=== PATIENT | male | born 1945 | race Caucasian/White ===

== ENCOUNTER 2025-01-06 07:56 | Observation (INO) ==
--- OUTSIDE RECORDS SUMMARY | 2025-01-06 08:29 | External Medical Summary | Summary of Care ---
Author Name Unknown Organization [facility] Address [address] [facility] [place] [address] Phone [phone] Care Team Providers Care Director Of Intelligence Name Role Phone Jose F Chapman MD Primary Care Provider + Encounter Details Date Type Department Care Team (Late st Contact Info) Description 12/11/2024 Population Health External Data Unspecified Department Allergies Active Allergy Reactions Criticality Noted Date Comments Aspirin Other (Please comment) 11/24/2009 GI bleed Bee Venom 02/08/2021 documented as of this encounter (statuses as of 12/11/2024) Medications CENTRUM SILVER PO TABS daily Active Cholecalciferol 50 MCG (1999) Oral Capsule Take 1,000 Units by mouth daily. Active mupirocin calcium (BACTROBAN) 2 % ointmentIndication s:Skin abnormality Apply topically to affected area 2 times a day. Apply to affected area. 22 g 1 0 Active Beano Oral Tablet Take by mouth. Active buPROPion HCl ER (XL) 300 MG Oral Tablet Extended Release 24 Hour (Wellbutrin XL)Indications:Dep ression, recurrent (HCC) Take 1 tablet by mouth once daily 90 Tablet 1 3 Active oxyBUTYnin Chloride ER 10 MG Oral Tablet Extended Release 24 Hour (Ditropan XL) Take 1 Tablet by mouth in the morning. 90 Tablet 3 4 Active Omeprazole 20 MG Oral Capsule Delayed Release (PriLOSEC)Indicati ons:Gastroesophage al reflux disease without esophagitis Take 1 capsule by mouth once daily 90 Capsule 1 4 Active Atorvastatin Calcium 40 MG Oral Tablet (Lipitor)Indicatio ns:Hyperlipidemia with target LDL less than 130 TAKE 1 TABLET BY MOUTH ONCE DAILY IN THE MORNING 90 Tablet 3 4 Active Levothyroxine Sodium 150 MCG Oral Tablet (Levoxyl)Indicatio ns:Other specified hypothyroidism TAKE 1 TABLET BY MOUTH IN THE MORNING 30 MINUTES BEFORE BREAKFAST OR OTHER MEDS 90 Tablet 1 4 Active documented as of this encounter (statuses as of 12/11/2024) Active Problems Problem Noted Date Diagnosed Date Umbilical hernia without obstruction and without gangrene 02/20/2023 BPH with obstruction/lower urinary tract symptom s 07/26/2022 Recurrent major depressive disorder, in remissio n 07/22/2021 Major depressive disorder, recurrent, unspecifie d 07/21/2020 Ocular migraine 07/17/2018 HTN, goal below 140/90 01/31/2014 History of duodenal ulcer 01/01/2013 Major depression 05/24/2012 Overview (05/28/2014): Started therapy , continues, goes to gym. Onychomycosis 04/26/2012 Routine general medical exam ination at a health care facility 03/26/2012 Overview (09/20/2023): 09/10 cologuard WNL AAA screen WNL 06/01 03/03 prostate biopsy WNL 03/02 prostate nodule-s/p biopsy 1 atypical--follows Dr Alvarez. very focal small prostate cancer suspicious cells left apex on biopsy 2013. No cancer on biopsy 2014. uro yearly SEDA 01/29 colonoscopy WNL. +diverticula 06/30-d/c DM meds. Emy 3mos. 2007 a1c 6.0. Started metformin Need to discuss nail options rx vs vinegar Seeing Keena Gee for counseling Erectile dysfunction 03/26/2012 Hyperlipidemia with target LDL less than 130 06/2012 GERD (gastroesophageal reflux disease) 2 Prediabetes 03/26/2012 Hypothyroidism 03/26/2012 Overview (04/26/2012): 03/30 -decreased dosed 175 documented as of this encounter (statuses as of 12/11/2024) Resolved Problems Problem Noted Date Diagnosed Date Resolved Date Abnormal prostate biopsy 04/03/2014 documented as of this encounter (statuses as of 12/11/2024) Immunizations Name Administration Dates Next Due COVID-19 mRNA, LNP-s, No Pre serve, 2-Dose Series (BioConsortia) 02/25/2022,09/16/2021,02/23/2021,02/02 Covid-19, Mrna, Lnp-s, Pf, B ivalent, 30 Mcg, IM, 12 yrs and above (Pfizer) 11/11/2022 Pneumococcal Conjugate Vacc, 13 Valent (Prevnar) 08/04/2016 Pneumococcal Polysaccharide PPV23 (Pneumovax) 04/26/2012,08/17/2009 RSV Vac., Recomb, Adjuvant, PF,0.5 Ml (Arexvy) 10/26/2023 Seasonal Influenza Vac., MDV , IM, 0.5 mL (Fluzone) 01/11/2015,01/01/2013 Seasonal Influenza, PF, 6 M & above, IM , (FluLaval or Fluzone) 07/21/2020 Seasonal Influenza, Quadriva lent Hd (Fluzone Hd) 07/26/2022,07/22/2021 Seasonal Influenza, Quadriva lent, No Preserve, IM 08/04/2016 TDAP (age 10 and older)(Boostrix) 07/23/2021 TDAP, Age 7 and older, IM (Adacel) 01/24/2011 Varicella Zoster Vaccine (Adult) 09/16/2009 Zoster Vaccine Recombinant (Shingrix) 04/14/2020 ,11/15/2019 documented as of this encounter Social History Tobacco Use Types Packs/Day Years Used Date Smoking Tobacco: Former Smokeless Tobacco: Never Alcohol Use Standard Drinks/Week Comments Yes 0 (1 standard drink = 0.6 oz pur e alcohol) rare no binge AUDIT-C Answer Date Recorded Frequency of Alcohol Consumption Monthly or less 04/19/2020 Average Number of Drinks 1 or 2 020 Frequency of Binge Drinking Not on file 11/2019 PHQ-2 Answer Date Recorded PHQ Adult Total Score 0 07/06/2023 Hunger Vital Sign Answer Date Recorded Within the past 12 months, y ou worried that your food would run out before you got the money to buy more. Never true 07/06/20 23 Within the past 12 months, t he food you bought just didn't last and you didn't have money to get more. Never true 07/06/2023 Childcare Answer Date Recorded Do you feel overwhelmed with taking care of a child, family member or friend? No 07/06/2023 Does your family need help f inding childcare? (Household - for ages 0-17 years) Not on file 07/06/2023 Clothing Answer Date Recorded Have you been unable to get clothing when it was really needed? No 07/06/2023 Is your family able to get c lothes or diapers when needed? (Household - for ages 0-17 years) Not on file 07/06/2023 Personal Safety Answer Date Recorded Do you feel unsafe or have concerns for your saf ety? No 07/06/2023 Do you have concerns for you r family's safety? (Household - for ages 0-17 years) Not on file 07/06/2023 Utilities Answer Date Recorded Do you have trouble paying y our heating, water, or electric bill? (Adult - for ages 18 years and over) Not on file 07/07/2024 Is your family able to pay t he heat, water, or electric bill? (Household - for ages 0-17 years) Not on file 07/07/2024 Does your family have access to good internet? (Household - for ages 0-17 years) Not on file 07/07/2024 Employment Status Answer Date Recorded Are you unemployed or without regular income? No 07/06/2023 Does the household have a re lar source of income? (Household - for ages 0-17 years) Not on file 07/06/2023 Social Connections Answer Date Recorded How often do you feel lonely or isolated from those around you? (Adult - for ages 18 years and over) Not on file 07/07/2024 Financial Resource Strain Answer Date R ecorded Do you have any trouble payi ng for your medications, or do you think you might in the future? No 07/06/2023 Does your family have troubl e paying for medicine? (Household - for ages 0-17 years) Not on file 07/06/2023 Transportation Needs Answer Date Record ed READ ONLY Do you have troubl e getting a ride to medical visits or work? Never True 07/06/2023 Does your family have a hard time getting a ride to doctors visits? (Household - for ages 0-17 years) Not on file 07/06/2023 Has lack of transportation k ept you from medical appointments, meetings, work, or from getting things needed for daily living? Check all that apply. (Adult - for ages 18 years and over) Not on file 07/06/2023 Do you (or your family) have trouble finding or paying for a ride (transportation)? (Household - for ages 0-17 years) Not on file 07/06/2023 Housing Stability Answer Date Recorded Do you currently live in a s helter or have no steady place to sleep at night? No 07/06/2023 READ ONLY Do you think you a re at risk of becoming homeless? No 07/06/2023 Does your family worry about paying for your home or becoming homeless? (Household - for ages 0-17 years) Not on file 0 07/06/2023 Are you homeless or worried that you might be in the future? (Adult - for ages 18 years and over) Not on file Are you (or your family) elizabeth eless or worried that you might be in the future? (Household - for ages 0-17 years) Not on file Food Insecurity Answer Date Recorded Do you need food for this week? No 07/06/2023 Are you able to get enough f ood for your family? (Household - for ages 0-17 years) Not on file 07/06/2023 Does your family need food t his week? (Household - for ages 0-17 years) Not on file 07/06/2023 Do you always have enough fo od for your family? (Household - for ages 0-17 years) Not on file 07/06/2023 Sex and Gender Information Value Date Recorded Sex Assigned at Male 07/06/2023 2:06 PM EDT Legal Sex Male 6:44 AM EST Gender Identity Male 04/19/2020 9:18 AM EDT Sexual Orientation Barlow 04/19/2020 9: 18 AM EDT Occupation Industry Job Start Date Job End Date retired Not on file Not on file Not on file documented as of this encounter Plan of Treatment Upcoming Encounters Date Type Department Care Team (Late st Contact Info) Description 02/12/2025 8:30 AM EDT Office Visit Urology Patrice Bernard [address] [place] [address] Craig Casey MD [address] [place] [id number] 03/10/2025 10:40 AM EDT Office Visit Neurology [facility] [address] [place] [address] Gelacio Bray MD [address] [place] [address] 07/21/2025 3:20 PM EDT Office Visit Family Practice [facility] [address] [place] [address] Jose F Chapman MD [address] [place] [id number] Health Maintenance Due Date Last Done Comments Adult Wellness Visit 09/28/2022 09/28/2021 Depression Monitoring 07/06/2024 07/06/2023 COVID-19 Vaccine ( season) 2024 11/11/2022, 02/25/2022, 09/16/2021, Additional history exists Influenza Vaccine (FLU shot) (#1) 2024 07/26/2022, 07/22/2021, 07/21/2020, Additional history exists GFR 07/09/2025 07/09/2024, 0207/2023, 07/26/2022, Additional history exists HbA1c 07/09/2025 07/09/2024, 10/20, 07/26/2022, Additional history exists TSH 07/09/2025 07/09/2024, 01/18, 11/09/2023, Additional history exists Albumin/Creatinine Ratio 07/26/2025 022, 01/15/2015, 06/07/2012 DTap/Tdap Vaccines (3 - Td or Tdap) 07/23/2031 07/23/2021, 01/24/2011 Colonoscopy Discontinued 01/20/2013, 02/2013, 11/24/2009 Pneumococcal Vaccine: 50+ Years Completed 08/04/2016, 04/26/2012, 08/17/2009 Zoster Vaccines Completed 04/14/2020, 10/20, 09/16/2009 Cologuard Discontinued 09/14/2023, 08/19, 09/06/2023 Colorectal Cancer Screening Discontinued Fecal Occult Blood Test Discontinued HPV (Gardasil) Vaccine Aged Out No lo nger eligible based on patient's age to complete this topic Hepatitis B Vaccine Discontinued MENINGOCOCCAL (MENACTRA/MENVEO) Aged Out No longer eligible based on patient's age to complete this topic Sigmoidoscopy Discontinued documented as of this encounter Medical Devices Implanted Type Area Street Openings Inspector Device Identifier Shelf Expiration Date Model / Serial / Lot Patch Hernia Ventralex Med - [id number] Implanted:Qty: 1 on 02/20/2023 by Mauricio Casey MD at OR [facility] N/A: Abdomen CR BARD : DAVOL 01/16/2024 [id number] / / [id number] documented as of this encounter Advance Directives * Full Code (Latest Code Status on File) Date Activated Date Inactivated Comments 02/20/2023 8:32 AM 02/20/2023 3:17 PM This order ref lects the patients wishes and were consensually agreed upon. Question Answer Comments Discussion of Advance Directives occurred with: Patient Care Teams Director Of Intelligence Relationship Specialty Start Date End Date Jose F Chapman MD [address] [id number] PCP - General Family Medicine 01/11/15 documented as of this encounter
--- OUTSIDE RECORDS SUMMARY | 2025-01-06 08:29 | External Medical Summary | Summary of Care ---
Author Name Unknown Organization [facility] Address [address] [facility] [place] [address] Phone [phone] Care Team Providers Care Night Worker Name Role Phone Jose F Clements MD Primary Care Provider + Reason for Visit * Reason Comments eRx-Medication Refill Encounter Details Date Type Department Care Team (Late st Contact Info) Description 09/29/2024 Refill Family Practice [facility] [address] [place] [address] Jose F Clements MD [address] [place] [phone] Other specified hypothyroidism Allergies Active Allergy Reactions Criticality Noted Date Comments Aspirin Other (Please comment) 11/24/2009 GI bleed Bee Venom 02/08/2021 documented as of this encounter (statuses as of 10/01/2024) Medications CENTRUM SILVER PO TABS daily Active Cholecalciferol 50 MCG (1999 [place]) Oral Capsule Take 1,000 Units by mouth daily. Active mupirocin calcium (BACTROBAN) 2 % ointmentIndicatio ns:Skin abnormality Apply topically to affected area 2 times a day. Apply to affected area. 22 g 1 020 Active Beano Oral Tablet Take by mouth. Active buPROPion HCl ER (XL) 300 MG Oral Tablet Extended Release 24 Hour (Wellbutrin XL)Indications:De pression, recurrent (HCC) Take 1 tablet by mouth once daily 90 Tablet 1 12/21/2 023 Active oxyBUTYnin Chloride ER 10 MG Oral Tablet Extended Release 24 Hour (Ditropan XL) Take 1 Tablet by mouth in the morning. 90 Tablet 3 024 Active Omeprazole 20 MG Oral Capsule Delayed Release (PriLOSEC)Indicat ions:Gastroesopha geal reflux disease without esophagitis Take 1 capsule by mouth once daily 90 Capsule 1 024 Active Atorvastatin Calcium 40 MG Oral Tablet (Lipitor)Indicati ons:Hyperlipidemi a with target LDL less than 130 TAKE 1 TABLET BY MOUTH ONCE DAILY IN THE MORNING 90 Tablet 3 024 Active Levothyroxine Sodium 150 MCG Oral Tablet (Levoxyl)Indicati ons:Other specified hypothyroidism TAKE 1 TABLET BY MOUTH IN THE MORNING 30 MINUTES BEFORE BREAKFAST OR OTHER MEDS 90 Tablet 1 024 Active Levothyroxine Sodium 150 MCG Oral Tablet (Levoxyl)Indicati ons:Other specified hypothyroidism TAKE 1 TABLET BY MOUTH ONCE DAILY IN THE MORNING 30 MINUTES BEFORE BREAKFAST OR OTHER MEDICATIONS 90 Tablet 1 024 2023 Discontinued documented as of this encounter (statuses as of 10/01/2024) Active Problems Problem Noted Date Diagnosed Date [...] as of this encounter (statuses as of 10/01/2024) Resolved Problems Problem Noted Date Diagnosed Date Resolved Date Abnormal prostate biopsy 04/03/2014 documented as of this encounter (statuses as of 10/01/2024) Immunizations Name Administration Dates Next Due COVID-19 mRNA, LNP-s, No Pre serve, 2-Dose Series (Ipselex) 02/25/2022,09/16/2021,02/23/2021,02/02 Covid-19, Mrna, Lnp-s, Pf, B ivalent, 30 Mcg, IM, 12 yrs and above (Ipselex) 11/11/2022 Pneumococcal Conjugate Vacc, 13 Valent (Prevnar) [...] 07/06/2023 Does the household have a re gular source of income? (Household - for ages [...] on file documented as of this encounter Miscellaneous Notes * [facility]01/[facility] 11:07 AM ESTSigned Prescriptions: Disp Refills Levothyroxine Sodium 150 MCG Oral Tablet (*90 Tab*1 Sig: TAKE 1 TABLET BY MOUTH IN THE MORNING 30 MINUTES BEFORE BREAKFAST OR OTHER MEDSAuthorizing Provider: JOSE F CLEMENTS User: HUNTER NGUYEN Electronically signed [facility] 10/01/2024 11:07 AM EST documented in this encounter Plan of Treatment Upcoming Encounters Date Type Department Care Team (Late st Contact Info) Description 02/12/2025 8:30 AM EDT Office Visit Urology Patrice Bernard [address] [place] [address] Craig Casey MD [address] [place] [phone] 03/10/2025 10:40 AM EDT Office Visit Neurology [facility] [place] [address] [place] [address] Gelacio Bray MD [address] [place] [address] 07/21/2025 3:20 PM EDT Office Visit Family Practice [facility] [address] [place] [address] Jose F Clements MD [address] [place] [address] Health Maintenance Due Date Last Done Comments Adult Wellness Visit 09/28/2022 09/28/2021 Depression Monitoring 07/06/2024 07/06/2023 COVID-19 Vaccine ( season) 2024 11/11/2022, 02/25/2022, 09/16/2021, Additional history exists Influenza Vaccine (FLU shot) (#1) 2024 07/26/2022, 07/22/2021, 07/21/2020, Additional history exists GFR 07/09/2025 07/09/2024, 07/2023, 07/26/2022, Additional history exists HbA1c 07/09/2025 07/09/2024, 10/20, 07/26/2022, Additional history exists TSH 07/09/2025 07/09/2024, 01/18, 11/09/2023, Additional history exists Albumin/Creatinine Ratio 07/26/2025 022, 01/15/2015, 06/07/2012 DTap/Tdap Vaccines (3 - Td or Tdap) 07/23/2031 07/23/2021, 01/24/2011 Colonoscopy Discontinued 01/20/2013, 02/2013, 11/24/2009 Pneumococcal Vaccine: 65+ Years Completed 08/04/2016, 04/26/2012, 08/17/2009 Zoster Vaccines [...] this encounter Medical Devices Implanted Type Area Professional Services Manager Device Identifier Shelf Expiration Date Model / Serial / Lot Patch Hernia Ventralex Med - [id number] Implanted:Qty: 1 on 02/20/2023 by Mauricio Casey MD at OR [facility] N/A: Abdomen CR BARD : DAVOL 01/16/2024 [id number] / / [id number] documented as of this encounter Visit Diagnoses Diagnosis Other specified hypothyroidism documented in this encounter Advance Directives * Full Code (Latest Code Status on File) Date Activated Date Inactivated Comments 02/20/2023 8:32 AM 02/20/2023 3:17 PM This order ref lects the patients wishes and were consensually agreed upon. Question Answer Comments Discussion of Advance Directives occurred with: Patient Care Teams Night Worker Relationship Specialty Start Date End Date Jose F Clements MD [address] [facility] [place] [address] PCP - General Family Medicine 01/11/15 documented as of this encounter
--- OUTSIDE RECORDS SUMMARY | 2025-01-06 08:29 | External Medical Summary | Summary of Care ---
Author Name Unknown Organization [facility] Address [address] [place] [address] Phone [phone] Care Team Providers Care Investigator Name Role Phone Jose F Chapman MD Primary Care Provider + Reason for Visit * Reason Comments Physical-Exam Yearly physical Encounter Details Date Type Department Care Team (Late st Contact Info) Description 07/11/2024 2:00 PM EDT Office Visit Family Practice [facility] [address] [place] [phone] Jose F Chapman MD [address] [place] [address] HTN, goal below 140/90*; Hyperlipidemia with target LDL less than 130; Other specified hypothyroidism; Prediabetes; BPH with obstruction/lower urinary tract symptoms; Encounter for long-term (current) use of medications Allergies Active Allergy Reactions Criticality Noted Date Comments Aspirin Other (Please comment) 11/24/2009 GI bleed Bee Venom 02/08/2021 documented as of this encounter (statuses as of 07/11/2024) Medications Medication Sig Dispensed Refills Start Date End Date Status CENTRUM SILVER PO TABS daily Active Cholecalciferol 50 MCG (1999) Oral Capsule Take 1,000 Units by mouth daily. Active mupirocin calcium (BACTROBAN) 2 % ointmentIndications: Skin abnormality Apply topically to affected area 2 times a day. Apply to affected area. 22 g 1 04/30/2020 Active Beano Oral Tablet Take by mouth. Act sarah buPROPion HCl ER (XL) 300 MG Oral Tablet Extended Release 24 Hour (Wellbutrin XL)Indications:Depre ssion, recurrent (HCC) Take 1 tablet by mouth once daily 90 Tablet 1 11/08/2023 Active oxyBUTYnin Chloride ER 10 MG Oral Tablet Extended Release 24 Hour (Ditropan XL) Take 1 Tablet by mouth in the morning. 90 Tablet 3 02/13/2024 Active Levothyroxine Sodium 150 MCG Oral Tablet (Levoxyl)Indications :Other specified hypothyroidism TAKE 1 TABLET BY MOUTH ONCE DAILY IN THE MORNING 30 MINUTES BEFORE BREAKFAST OR OTHER MEDICATIONS 90 Tablet 1 04/08/2024 Active Atorvastatin Calcium 40 MG Oral Tablet (Lipitor)Indications :Hyperlipidemia with target LDL less than 130 TAKE 1 TABLET BY MOUTH IN THE MORNING 90 Tablet 1 04/29/2024 Active Omeprazole 20 MG Oral Capsule Delayed Release (PriLOSEC)Indication s:Gastroesophageal reflux disease without esophagitis Take 1 capsule by mouth once daily 90 Capsule 1 05/20/2024 Active documented as of this encounter (statuses as of 07/11/2024) Active Problems Problem Noted Date Diagnosed Date Umbilical hernia without obstruction and without gangrene 02/20/2023 BPH with obstruction/lower urinary tract symptom s 07/26/2022 Recurrent major depressive disorder, in remissio n 07/22/2021 Major depressive disorder, recurrent, unspecifie d 07/21/2020 Ocular migraine 07/17/2018 HTN, goal below 140/90 01/31/2014 History of duodenal ulcer 01/01/2013 Major depression 05/24/2012 Overview: Started therapy , continues, goes to gym. Onychomycosis 04/26/2012 Routine general medical exam ination at a health care facility 03/26/2012 Overview: 09/10 cologuard WNL AAA screen WNL 06/01 [...] reflux disease) 2 Prediabetes 03/26/2012 Hypothyroidism 03/26/2012 Overview: 03/30 -decreased dosed 175 documented as of this encounter (statuses as of 07/11/2024) Resolved Problems Problem Noted Date Diagnosed Date Resolved Date Abnormal prostate biopsy 04/03/2014 documented as of this encounter (statuses as of 07/11/2024) Immunizations Name Administration Dates Next Due COVID-19 mRNA, LNP-s, No Pre serve, 2-Dose Series (ArrayComm) 02/25/2022,09/16/2021,02/23/2021,02/02 Covid-19, Mrna, Lnp-s, Pf, B ivalent, 30 Mcg, IM, 12 yrs and above (ArrayComm) 11/11/2022 Pneumococcal Conjugate Vacc, 13 Valent (Prevnar) 08/04/2016 Pneumococcal Polysaccharide PPV23 (Pneumovax) 04/26/2012,08/17/2009 RSV Vac., Recomb, Adjuvant, PF,0.5 Ml (Arexvy) 10/26/2023 Seasonal Influenza, PF, 6 M & above, IM , (FluLaval or Fluzone) 07/21/2020 Seasonal Influenza, Quadriva lent Hd (Fluzone Hd) 07/26/2022,07/22/2021 Seasonal Influenza, Quadriva lent, No Preserve, IM 08/04/2016 Seasonal Influenza, Split, I IV3, With Preserve, Inj 01/11/2015,01/01/2013 TDAP (age 10 and older)(Boostrix) 07/23/2021 TDAP, Age 7 and older, IM (Adacel) 01/24/2011 Varicella Zoster Vaccine (Adult) 09/16/2009 Zoster Vaccine Recombinant (Shingrix) 04/14/2020 ,11/15/2019 documented as of this encounter Social History Tobacco Use Types Packs/Day Years Used Date Smoking Tobacco: Former Smokeless Tobacco: Never Tobacco Cessation:Counseling Given: Not Answered Alcohol Use Standard Drinks/Week Comments Yes 0 [...] Assigned at Male 07/06/2023 2:06 PM EDT Gender Identity Male 04/19/2020 9:18 AM EDT Sexual Orientation Barlow 04/19/2020 9: 18 AM EDT Job Start Date Occupation Industry Not on file Not on file Not on file documented as of this encounter Last Filed Vital Signs Vital Sign Reading Time Taken Comments Blood Pressure 124/78 07/11/2024 2:25 PM EDT Pulse 68 07/11/2024 2:25 PM EDT Temperature 36.4 C (97.5 F) 07/11/2024 2:25 PM ED T Respiratory Rate 16 07/11/2024 2:25 PM EDT Oxygen Saturation 98% 07/11/2024 2:25 PM EDT Inhaled Oxygen Concentration - - Weight 103 kg (227 lb) 07/11/2024 2:25 PM EDT Height 179.1 cm (5' 10.5") 07/11/2024 2:25 PM ED T Body Mass Index 32.11 07/11/2024 2:25 PM EDT documented in this encounter Progress Notes * Jose F Chapman MD - 07/11/2024 2:35 PM EDT SUBJECTIVE: Corwin Viera is a 79 year old male here for Physical-Exam (Yearly physical ) . Here for annual. No fever, chills, chest pain, shortness of breath, headache, nausea, vomit, diarrhea, constipation or vision changes Had recent trip to [place] , saw shows. Little exercise noted hadn't been taking synthroid regularly, but now he is helping with that. ROS: Negative except above. Past Medical History: Diagnosis Date Abnormal prostate biopsy 04/03/2014 BPH with obstruction/lower urinary tract symptoms 07/26/2022 Elevated glucose 03/26/2012 Erectile dysfunction 03/26/2012 Essential hypertension, benign 03/26/2012 GERD (gastroesophageal reflux disease) 03/26/2012 History of duodenal ulcer 01/01/2013 Major depression 05/24/2012 Ocular migraine 07/17/2018 Onychomycosis 04/26/2012 Other and unspecified hyperlipidemia 03/26/2012 Prostate nodule 03/02 Past Surgical History: Procedure Laterality Date BIOPSY OF PROSTATE 03/02/2014 BIOPSY OF PROSTATE 03/08/2015 WNL COLONOSCOPY, DIAGNOSTIC (RECTUM) 01/20/2013 COLONOSCOPY FLEXIBLE PROXIMAL DIAGNOSTIC performed by Chuck Hunt MD at ENDOSCOPY [facility] COLORECTAL CANCER SCREEN; NOT AT RISK 11/24/2009 done diverticulosis, repeat in 3 years RPR AA HERNIA 1ST < 3 CM REDUCIBLE N/A 02/20/2023 EPIGASTRIC/UMBILICAL HERNIA REPAIR INITIAL < 3 CM REDUCIBLE performed by Mauricio Casey MD at OR [facility] Social History Socioeconomic History Marital status: Spouse name: Not on file Number of children: Not on file Years of education: Not on file Highest education level: Not on file Occupational History Occupation: retired Employer: [employer] 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 mutual masturbation only. 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 2021 [employer]. Social Determinants of Health Financial Resource Strain: Low Risk (07/06/2023) Financial Resource Strain Do you have any trouble paying for your medications, or do you think you might in the future? (Adult - for ages 18 years and over): No Does your family have trouble paying for medicine? (Household - for ages 0-17 years): Not on file Food Insecurity: No Food Insecurity (07/06/2023) Food Insecurity Do you need food for this week? (Adult - for ages 18 years and over): No Are you able to get enough food for your family? (Household - for ages 0-17 years): Not on file Does your family need food this week? (Household - for ages 0-17 years): Not on file Do you always have enough food for your family? (Household - for ages 0-17 years): Not on file Transportation Needs: No Transportation Needs (07/06/2023) Transportation Needs Do you have trouble getting a ride to medical visits or work? (Adult - for ages 18 years and over):Never True Does your family have a hard time getting a ride to doctors visits? (Household - for ages 0-17 years): Not on file Has lack of transportation kept you from medical appointments, meetings, work, or from getting things needed for daily living? Check all that apply. (Adult - for ages 18 years and over): Not on file Do you (or your family) have trouble finding or paying for a ride (transportation)? (Household - for ages 0-17 years): Not on file Social Connections: Unknown (07/07/2024) Social Connections How often do you feel lonely or isolated from those around you? (Adult - for ages 18 years and over): Not on file Housing Stability: Low Risk (07/06/2023) Housing Stability Do you currently live in a custodial or have no steady place to sleep at night? (Adult - for ages 18 years and over): No Do you think you are at risk of becoming homeless? (Adult - for ages 18 years and over): No Does your family worry about paying for your home or becoming homeless? (Household - for ages 0-17 years): Not on file Are you homeless or worried that you might be in the future? (Adult - for ages 18 years and over): Not on file Are you (or your family) homeless or worried that you might be in the future? (Household - for ages0-17 years): Not on file Family History Problem Relation Name Age of Onset Stroke Mother 85-aneurysm Heart Disorder Father lipids-[place] 50s Mental Disorder Father depression Mental Disorder Grandfather (Paternal) suicide Gastro-intestinal disorder Grandfather (Maternal) ulcer Mental Disorder Sister depression. [place]. Mental Disorder Aunt (Unspecified) depression Current Outpatient Medications Medication Sig Dispense Refill CENTRUM SILVER PO TABS daily Cholecalciferol 50 MCG (1999 UT) Oral Capsule Take 1,000 Units by mouth daily. mupirocin calcium (BACTROBAN) 2 % ointment Apply topically to affected area 2 times a day. Apply toaffected area. 22 g 1 Beano Oral Tablet Take by mouth. buPROPion HCl ER (XL) 300 MG Oral Tablet Extended Release 24 Hour (Wellbutrin XL) Take 1 tablet by mouth once daily 90 Tablet 1 oxyBUTYnin Chloride ER 10 MG Oral Tablet Extended Release 24 Hour (Ditropan XL) Take 1 Tablet by mouth in the morning. 90 Tablet 3 Levothyroxine Sodium 150 MCG Oral Tablet (Levoxyl) TAKE 1 TABLET BY MOUTH ONCE DAILY IN THE [id number] MINUTES BEFORE BREAKFAST OR OTHER MEDICATIONS 90 Tablet 1 Atorvastatin Calcium 40 MG Oral Tablet (Lipitor) TAKE 1 TABLET BY MOUTH IN THE MORNING 90 Tablet 1 Omeprazole 20 MG Oral Capsule Delayed Release (PriLOSEC) Take 1 capsule by mouth once daily 90 Capsule 1 No current facility-administered medications for this visit. Physical: BP 124/78 | Pulse 68 | Temp 36.4 C (97.5 F) (Tympanic) | Resp 16 | Ht 1.791 m (5' 10.5") | Wt 103 kg (227 lb) | SpO2 98% | BMI 32.11 kg/m | BSA 2.26 m General-No apparent Distress Head, Eyes, Ears, Nose, Throat--Normocephalic, atraumatic Neck-Supple Lymph-no lymphadenopathy Lungs-Clear to Auscultation bilaterally Cardiovascular--Regular rate & Rhythm, +s1, s2, no murmur Abdomen-soft, nontender, nondistended + bowel sounds Extremities--no edema Neuro-alert & oriented x3 (I10) HTN, goal below 140/90 (primary encounter diagnosis) Plan: labs reviewed/ordered Cont mgmt PSA-follows Dr Jacinto Macedo WNL 08/2023 (E78.5) Hyperlipidemia with target LDL less than 130 Plan: cont mgmt (E03.8) Other specified hypothyroidism Plan: cont mgmt TSH<10 (R73.03) Prediabetes Plan: counseled on diet/exercise Consider Metformin --goal restart going to the gym 2 x/ week, TLC (N40.1, N13.8) BPH with obstruction/lower urinary tract symptoms Plan: cont mgmt doing well Flu & COVID shot in fall (This note was completed using the dictation program Fluency Direct. As such, there may be misspellings, word substitutions, or other variations that should not change the essence of the clinical content of this encounter note.If there is need for further clarification, please direct questions to the provider listed above.) Jose F Chapman MD documented in this encounter Nursing Notes * Shana Calvert LPN - 07/11/2024 2:23 PM EDT The patient has been properly identified by confirmation of name and date of . Chief Complaint Patient presents with Physical-Exam Yearly physical Spot on knee-not painful but bothersome Spot on neck-not sure if its a skin tag. documented in this encounter Plan of Treatment Upcoming Encounters Date Type Department Care Team (Late st Contact Info) Description 02/12/2025 8:30 AM EDT Office Visit Urology [facility] [address] [place] [phone] Craig Casey MD [address] [place] [phone] 07/21/2025 3:20 PM EDT Office Visit Family Practice [facility] [address] [place] [phone] Jose F Chapman MD [address] [place] [address] Scheduled Orders Name Type Priority Associated Diagnoses Orde r Schedule BASIC METABOLIC PANEL Lab Routine Prediabetes Expected: 07/08/2025 (Approximate), Expires: 07/11/2025 LIPID PANEL WITH DIRECT LDL IF TG IS HIGH Lab Routine Hyperlipidemia with target LDL less than 130 Expected: 07/08/2025 (Approximate), Expires: 07/11/2025 VITAMIN B12 Lab Routine Encounter for long-term (current) use of medications Expected: 07/08/2025 (Approximate), Expires: 07/11/2025 MAGNESIUM Lab Routine Encounter for long-term (current) use of medications Expected: 07/08/2025 (Approximate), Expires: 07/11/2025 TSH WITH FREE T4 IF INDICATED Lab Routine Other specified hypothyroidism Expected: 07/08/2025 (Approximate), Expires: 07/11/2025 HEMOGLOBIN A1C Lab Routine Prediabetes Expected: 07/08/2025 (Approximate), Expires: 07/11/2025 Health Maintenance Due Date Last Done Comments Adult Wellness Visit 09/28/2022 09/28/2021 COVID-19 Vaccine ( season) 2023 11/11/2022, 02/25/2022, 09/16/2021, Additional history exists Depression Monitoring 07/06/2024 07/06/2023 Influenza Vaccine (FLU shot) (#1) 2024 07/26/2022, 07/22/2021, 07/21/2020, Additional history exists GFR 07/09/2025 07/09/2024, 07/2023, 07/26/2022, Additional history exists HbA1c 07/09/2025 07/09/2024, 10/20, 07/26/2022, Additional history exists TSH 07/09/2025 07/09/2024, 01/18, 11/09/2023, Additional history exists Albumin/Creatinine Ratio 07/26/2025 022, 01/15/2015, 06/07/2012 DTaP,Tdap,and Td Vaccines (3 - Td or Tdap) 07/23/2031 [...] this encounter Medical Devices Implanted Type Area Salon Stylist Device Identifier Shelf Expiration Date Model / Serial / Lot Patch Hernia Ventralex Med - [id number] Implanted:Qty: 1 on 02/20/2023 by Mauricio Casey MD at OR [facility] N/A: Abdomen CR BARD : DAVOL 01/16/2024 [id number] / / [id number] documented as of this encounter Visit Diagnoses Diagnosis HTN, goal below 140/90- Primary Unspecified essential hypertension Hyperlipidemia with target LDL less than 130 Other and unspecified hyperlipidemia Other specified hypothyroidism Prediabetes Other abnormal glucose BPH with obstruction/lower urinary tract symptoms Hypertrophy of prostate with urinary obstruction and other lower urinary tract symptoms (LUTS) Encounter for long-term (current) use of medications Encounter for long-term (current) use of other medications documented in this encounter Advance Directives * Full Code (Latest Code Status on File) Date Activated Date Inactivated Comments 02/20/2023 8:32 AM 02/20/2023 3:17 PM This order ref lects the patients wishes and were consensually agreed upon. Question Answer Comments Discussion of Advance Directives occurred with: Patient Care Teams Investigator Relationship Specialty Start Date End Date Jose F Chapman MD [address] [place] [phone] PCP - General Family Medicine 01/11/15 documented as of this encounter
--- OUTSIDE RECORDS SUMMARY | 2025-01-06 08:29 | External Medical Summary | Summary of Care ---
Author Name Unknown Organization [facility] Address [address] [place] [address] Phone [phone] Care Team Providers Care Primer Expeditor And Drier Name Role Phone Jose F Chapman MD Primary Care Provider + Reason for Referral * Evaluate & Treat - Unlimited Visits (Within 10 days (routine)) - Authorized Specialty Diagnoses / Procedures Referred By Contac t Referred To Contact Neurology Diagnoses Essential tremor Jose F Champan MD [address] [place] [address] Referral ID Status Reason Start Date Expiration Date Visits Requested Visits Authorized [id number] Authorized Specialty Services Required 08/20/[phone] Question Answer Referral Priority Within 10 days (routine) Where should this appointment be scheduled? [facility] Is this referral being placed for insurance purposes ONLY No, patient needs appointment [facility] NEUROLOGY REFERRAL QUESTIONS Movement Comments Pt with worsening tremor over the last year, worse with eating, drawing. Please eval Also worsening memory, sleep problems, per his --unclear If related Reason for Visit * Reason Onset Date Comments Appointment 08/20/2024 Encounter Details Date Type Department Care Team (Late st Contact Info) Description 08/20/2024 Telephone Family Practice [facility] [email or web address] [place] [phone] Jose F Chapman MD [address] [place] [address] Appointment Allergies Active Allergy Reactions Criticality Noted Date Comments Aspirin Other (Please comment) 11/24/2009 GI bleed Bee Venom 02/08/2021 documented as of this encounter (statuses as of 08/21/2024) Medications Medication Sig Dispensed Refills Start Date End Date Status CENTRUM SILVER PO TABS daily Active Cholecalciferol 50 MCG (2000 UT) Oral Capsule Take 1,000 Units by [...] as of this encounter (statuses as of 08/21/2024) Active Problems Problem Noted Date Diagnosed Date [...] as of this encounter (statuses as of 08/21/2024) Resolved Problems Problem Noted Date Diagnosed Date Resolved Date Abnormal prostate biopsy 04/03/2014 documented as of this encounter (statuses as of 08/21/2024) Immunizations Name Administration Dates Next Due COVID-19 mRNA, LNP-s, No Pre serve, 2-Dose Series (Tradyo) 02/25/2022,09/16/2021,02/23/2021,02/02 Covid-19, Mrna, Lnp-s, Pf, B ivalent, 30 Mcg, IM, 12 yrs and above (Tradyo) 11/11/2022 Pneumococcal Conjugate Vacc, 13 Valent (Prevnar) [...] 18 years and over) Not on file 3 Are you (or your family) elizabeth eless [...] encounter Miscellaneous Notes * Telephone Encounter - Norma Jean OSA - 08/21/2024 2:12 PM EDT I do not have anything sooner at this time. * Telephone Encounter - Kimberli Bourgeois OSA - 08/20/2024 2:37 PM EDT Spoke w/ both dereck and ambreen I gave them first avail appt in [facility] 03/10 added to wait list and also going to forward this to [facility] to see if they can get him in any sooner Please see message below * Telephone Encounter - Jose F Chapman MD - 08/20/2024 11:30 AM EDT Ambreen requested neuro eval for worsening tremor, sleep , memory Referral signed ok to contact patient or Ambreen documented in this encounter Plan of Treatment Upcoming Encounters Date Type Department Care Team (Late st Contact Info) Description 02/12/2025 8:30 AM EDT Office Visit Urology Patrice Bernard [address] [place] [address] Craig Casey MD [address] [place] [address] 03/10/2025 10:40 AM EDT Office Visit Neurology [facility] [address] [place] [address] Gelacio Bray MD [address] [place] [address] 07/21/2025 3:20 PM EDT Office Visit Family Practice [facility] [address] [place] [address] Jose F Chapman MD [address] [place] [address] Scheduled Referrals Name Type Priority Associated Diagnoses Orde r Schedule ADULT NEUROLOGY REFERRAL OP Referral Within 10 days (routine) Essential tremor Ordered: 08/20/2024 Health Maintenance Due Date Last Done Comments Adult Wellness Visit 09/28/2022 09/28/2021 Depression Monitoring 07/06/2024 07/06/2023 COVID-19 Vaccine ( season) 2024 11/11/2022, 02/25/2022, 09/16/2021, Additional history exists Influenza Vaccine (FLU shot) (#1) 2024 07/26/2022, 07/22/2021, 07/21/2020, Additional history exists GFR 07/09/2025 07/09/2024, 02/0 07/2023, 07/26/2022, Additional history exists HbA1c 07/09/2025 07/09/2024, 1212/2022, 07/26/2022, Additional history exists TSH 07/09/2025 07/09/2024, [...] this encounter Medical Devices Implanted Type Area Composition Stone Applicator Device Identifier Shelf Expiration Date Model / Serial / Lot Patch Hernia Ventralex Med - [id number] Implanted:Qty: 1 on 02/20/2023 by Mauricio Casey MD at OR [facility] N/A: Abdomen CR BARD : DAVOL 01/16/2024 [id number] / / [id number] documented as of this encounter Visit Diagnoses Diagnosis Essential tremor- Primary Essential and other specified forms of tremor documented in this encounter Advance Directives * Full Code (Latest Code Status on File) Date Activated Date Inactivated Comments 02/20/2023 8:32 AM 02/20/2023 3:17 PM This order ref lects the patients wishes and were consensually agreed upon. Question Answer Comments Discussion of Advance Directives occurred with: Patient Care Teams Primer Expeditor And Drier Relationship Specialty Start Date End Date Jose F Chapman MD [address] [place] [id number] PCP - General Family Medicine 01/11/15 documented as of this encounter
--- OUTSIDE RECORDS SUMMARY | 2025-01-06 08:29 | External Medical Summary | Summary of Care ---
Author Name Unknown Organization [facility] Address [address] [facility] [place] [address] Phone [phone] Care Team Providers Care Email Marketing Intern Name Role Phone Jose F Clements MD Primary Care Provider + Reason for Visit * Reason Comments eRx-Medication Refill Encounter Details Date Type Department Care Team (Late st Contact Info) Description 09/19/2024 Refill Family Practice [facility] [address] [place] [phone] Jose F Clements MD [address] [place] [phone] Hyperlipidemia with target LDL less than 130 Allergies Active Allergy Reactions Criticality Noted Date Comments Aspirin Other (Please comment) 11/24/2009 GI bleed Bee Venom 02/08/2021 documented as of this encounter (statuses as of 09/22/2024) Medications Medication Sig Dispensed Refills Start Date End Date Status CENTRUM SILVER PO TABS daily Active Cholecalciferol 50 MCG (1999) Oral Capsule Take 1,000 Units by mouth daily. Active mupirocin calcium (BACTROBAN) 2 % ointmentIndications :Skin abnormality Apply topically to affected area 2 times a day. Apply to affected area. 22 g 1 0 Active Beano Oral Tablet Take by mouth. Act sarah buPROPion HCl ER (XL) 300 MG Oral Tablet Extended Release 24 Hour (Wellbutrin XL)Indications:Depr ession, recurrent (HCC) Take 1 tablet by mouth once daily 90 Tablet 1 3 Active oxyBUTYnin Chloride ER 10 MG Oral Tablet Extended Release 24 Hour (Ditropan XL) Take 1 Tablet by mouth in the morning. 90 Tablet 3 4 Active Levothyroxine Sodium 150 MCG Oral Tablet (Levoxyl)Indication s:Other specified hypothyroidism TAKE 1 TABLET BY MOUTH ONCE DAILY IN THE MORNING 30 MINUTES BEFORE BREAKFAST OR OTHER MEDICATIONS 90 Tablet 1 4 Active Omeprazole 20 MG Oral Capsule Delayed Release (PriLOSEC)Indicatio ns:Gastroesophageal reflux disease without esophagitis Take 1 capsule by mouth once daily 90 Capsule 1 4 Active Atorvastatin Calcium 40 MG Oral Tablet (Lipitor)Indication s:Hyperlipidemia with target LDL less than 130 TAKE 1 TABLET BY MOUTH ONCE DAILY IN THE MORNING 90 Tablet 3 4 Active Atorvastatin Calcium 40 MG Oral Tablet (Lipitor)Indication s:Hyperlipidemia with target LDL less than 130 TAKE 1 TABLET BY MOUTH IN THE MORNING 90 Tablet 1 4 09/22/20 24 Discontinued documented as of this encounter (statuses as of 09/22/2024) Active Problems Problem Noted Date Diagnosed Date [...] WNL. +diverticula 06/30-d/c DM meds. Emy 3mos. 2008 a1c 6.0. Started metformin Need to discuss nail options rx vs vinegar Seeing Keena Gee for counseling Erectile dysfunction 03/26/2012 Hyperlipidemia with target LDL less than 130 06/2012 GERD (gastroesophageal reflux disease) 2 Prediabetes 03/26/2012 Hypothyroidism 03/26/2012 Overview: 03/30 -decreased dosed 175 documented as of this encounter (statuses as of 09/22/2024) Resolved Problems Problem Noted Date Diagnosed Date Resolved Date Abnormal prostate biopsy 04/03/2014 documented as of this encounter (statuses as of 09/22/2024) Immunizations Name Administration Dates Next Due COVID-19 mRNA, LNP-s, No Pre serve, 2-Dose Series ([place]) 02/25/2022,09/16/2021,02/23/2021,02/02 Covid-19, Mrna, Lnp-s, Pf, B ivalent, [...] encounter Miscellaneous Notes * Telephone Encounter - Noemi Weiss [facility] - 09/22/2024 6:19 AM ESTSigned Prescriptions: Disp Refills Atorvastatin Calcium 40 MG Oral Tablet (Li*90 Tab*3 Sig: TAKE 1 TABLET BY MOUTH ONCE DAILY IN THE MORNINGAuthorizing Provider: JOSE F CLEMENTS User: NOEMI WEISS documented in this encounter Plan of Treatment Upcoming Encounters Date Type Department Care Team (Late st Contact Info) Description 02/12/2025 8:30 AM EDT Office Visit Urology Patrice Bernard [address] [place] [id number] Craig Casey MD [address] [place] [id number] 03/10/2025 10:40 AM EDT Office Visit Neurology [facility] [address] [place] [address] Gelacio Bray MD [address] [facility] [address] 07/21/2025 3:20 PM EDT Office Visit Family Practice [facility] [address] [place] [phone] Jose F Clements MD [address] [place] [address] Health Maintenance Due Date Last Done Comments [...] this encounter Medical Devices Implanted Type Area Clerical Adjuster Device Identifier Shelf Expiration Date Model / Serial / Lot Patch Hernia Ventralex Med - [id number] Implanted:Qty: 1 on 02/20/2023 by Mauricio Casey MD at OR [facility] N/A: Abdomen CR BARD : DAVOL 01/16/2024 [id number] / / [id number] documented as of this encounter Visit Diagnoses Diagnosis Hyperlipidemia with target LDL less than 130 Other and unspecified hyperlipidemia documented in this encounter Advance Directives * Full Code (Latest Code Status on File) Date Activated Date Inactivated Comments 02/20/2023 8:32 AM 02/20/2023 3:17 PM This order ref lects the patients wishes and were consensually agreed upon. Question Answer Comments Discussion of Advance Directives occurred with: Patient Care Teams Email Marketing Intern Relationship Specialty Start Date End Date Jose F Clements MD [address] [place] [id number] PCP - General Family Medicine 01/11/15 documented as of this encounter
[2025-01-06 08:46] LABS: Basophils # (auto) 0.04 K/uL (0.00-0.20); Basophils % (auto) 0.7 %; Eosinophils # (auto) 0.24 K/uL (0.00-0.50); Eosinophils % (auto) 3.9 %; Hematocrit (blood only) 44.5 % (42.0-52.0); Hemoglobin 15.5 g/dl (14.0-18.0); Immature Granulocytes # (auto) 0.05 K/uL (0.01-0.20); Immature Granulocytes % (auto) 0.8 %; Lymphocytes # (auto) 1.29 K/uL (1.20-3.40); Lymphocytes % (auto) 21.1 %; Mean Corpuscular Hemoglobin 33.5 pg (25.0-34.0); Mean Corpuscular Hgb Conc 34.8 g/dL (32.0-36.0); Mean Corpuscular Volume 96.3 fL (80.0-100.0); Mean Platelet Volume 10.1 fL (9.4-12.4); Monocytes # (auto) 0.64 K/uL (0.11-0.59); Monocytes % (auto) 10.5 %; Neutrophils # (auto) 3.84 K/uL (1.40-6.50); Platelet Count 184 K/uL (130-400); RDW Coefficient of Variation 12.5 % (11.5-14.5); RDW Standard Deviation 44.5 fL (36.4-46.3); Red Blood Count 4.62 M/uL (4.70-6.10)
[2025-01-06 09:13] LABS: Albumin Globulin Ratio 1.3 (0.9-2); Albumin Level 3.9 gm/dl (3.4-5.0); BUN Creatinine Ratio 15.6 (10-20); Bilirubin,Total 0.5 mg/dl (0.2-1.0); Creatinine Clr Calc Pharmacy 79.4 ml/min; Magnesium 1.9 mg/dl (1.7-2.4); Potassium 3.5 mmol/L (3.5-5.1); Total Protein 6.9 gm/dl (6.0-8.3)
[2025-01-06 09:20] LABS: Troponin I High Sensitivity 4.9 pg/ml (0-20)
[2025-01-06 09:24] LABS: Prothrombin Time 11.2 Seconds (9.0-12.0)
[2025-01-06 09:27] LABS: Thyroid Stimulating Hormone 1.563 uIu/ml (0.300-4.500)
[2025-01-06 09:33] LABS: Appearance Urine Clear (Clear); Bilirubin Urine Negative (Negative); Blood Urine Negative (Negative); Color Urine Yellow; Glucose Urine UA 1+ (Negative); Ketones Urine Trace (Negative); Leukocyte Esterase Urine Negative (Negative); Nitrite Urine Negative (Negative); Protein Urine Negative (Negative); Specific Gravity Urine 1.021 (1.000-1.030); Urobilinogen Urine Negative (Negative)
--- NOTE | 2025-01-06 09:40 | CT Scan Report ---
CT OF THE HEAD WITHOUT CONTRAST CLINICAL HISTORY: Confusion. COMPARISON STUDY: Head CT January 17, 2021. CT DOSE: 625.8 mGy.cm TECHNIQUE: Helical axial images of the head were obtained without IV contrast. Automated exposure con trol was utilized for the study. A dose lowering technique was utilized adhering to the principles o f ALARA. FINDINGS: No acute intracranial hemorrhage, midline shift or mass effect is present. The ventricular system is unremarkable. The basal cisterns are patent. No extra-axial collections are present. There are no findings to suggest acute dural sinus thrombosis or acute territorial infarct. No significant calvarial abnormalities are present. White matter hypodensities suggest small vessel disease. Mastoid air cells are clear. There is moderate frontal sinus mucosal thickening. Extensive ethmoid sinus betty ypoid mucosal thickening was shown on prior CT. There is mild sphenoid sinus mucosal thickening. Ther e is mucosal thickening of both maxillary sinuses with air-fluid levels. Maximal sinus opacification is new since prior exam. IMPRESSION: 1. No acute intracranial findings. 2. Extensive sinus mucosal thickening with air-fluid levels within the bilateral maxillary sinuses. T he findings may represent acute on chronic sinusitis. ACT 112: Negative or not required by law. Electronically signed by: Juan Alberto Camargo M.D. 01/06/2025 9:39 AM
[2025-01-06 09:41] LABS: Adenovirus PCR Not Detected (NotDetected); Bordetella parapertussis PCR Not Detected (NotDetected); Bordetella pertussis PCR Not Detected (NotDetected); Chlamydia pneumoniae PCR Not Detected (NotDetected); Coronavirus 229E PCR Not Detected (NotDetected); Coronavirus CoV-2 (COVID19)PCR Not Detected (NotDetected); Coronavirus HKU1 PCR Not Detected (NotDetected); Coronavirus NL63 PCR DETECTED (NotDetected); Coronavirus OC43PCR Not Detected (NotDetected); Human Metapneumovirus PCR Not Detected (NotDetected); Influenza A PCR Not Detected (NotDetected); Influenza B PCR Not Detected (NotDetected); Mycoplasma pneumoniae PCR Not Detected (NotDetected); Parainfluenza Virus 1 PCR Not Detected (NotDetected); Parainfluenza Virus 2 PCR Not Detected (NotDetected); Parainfluenza Virus 3 PCR Not Detected (NotDetected); Parainfluenza Virus 4 PCR Not Detected (NotDetected); Respiratory Syncytial VirusPCR Not Detected (NotDetected); Rhinovirus/Enterovirus PCR Not Detected (NotDetected)
--- NOTE | 2025-01-06 10:04 | Emergency Department Note ---
Impression & Plan AMS (altered mental status), Coronavirus infection ED Provider Note HISTORY OF PRESENT ILLNESS: Patient is a 79-year-old male presenting with confusion. provides history. Reports that the patient has had a stuffy nose and congestion for the last few days. States that last night the patient started speaking nonsensically and was talking about Thanksgiving and family members who are not there. Reports that the patient would have intermittent confusion over the last 3 days, but the confusion last night was the worst. states that over the last few months the patient will be driving and forget what exit to go off of or have intermittent episodes of being confused, but nothing like last night. No reported recent falls or head injuries. Patient denies any numbness, tingling or weakness in extremities. Patient reports he is had nasal congestion for the last few days. They have been using Mucinex [id number]. No reported fevers. Patient denies any chest pain or shortness of breath. ROS: as above PHYSICAL EXAM: Constitutional: Patient appears in no acute distress. HENT: Head: Normocephalic and atraumatic. Eyes: EOMI, PERRL Mouth/Throat: Mucous membranes moist. Neck: Trachea midline. Neck supple. Cardiovascular: RRR, No murmurs, rubs or gallops. Intact distal pulses. Pulmonary/Chest: No respiratory distress. Breath sounds clear and equal bilaterally. No wheezes or rales. Abdominal: Abdomen soft, no tenderness, rebound or guarding. Musculoskeletal: No edema, tenderness or deformity noted. Skin: Warm and dry. No rash, erythema, pallor or cyanosis Psychiatric: Appropriate mood and affect for situation. Neurological: Alert and keenly responsive. CN II-XII grossly intact, moving all extremities equally and fully. MDM: - Vitals signs stable - History obtained via patient patient's . History as above. - Chronic conditions affecting care: hypothyroidism; HLD - Differential diagnoses include, but are not limited to: CVA; intracranial pathology; UTI; pneumonia; viral syndrome; ACS; electrolyte abnormality; hypothyroidism - Order placed for continuous cardiac monitoring. At this time, monitor showed rate of 65 bpm with normal sinus rhythm, per my interpretation. - External medical records reviewed. Orthopedics office visit note dated 08/08/2021 was reviewed. Patient was seen for right knee pain. - EKG image interpreted by myself showed normal sinus rhythm. Rate 61 bpm. QT 400. No acute ischemic changes. - Laboratory workup interpreted by myself showed normal WBC; normal PT/INR; stable electrolytes; normal troponin; normal TSH - UA negative for infection - Viral respiratory panel positive for coronavirus type NL63. - CT head wo contrast negative for acute intracranial pathology. Noted extensive mucosal thickening of the bilateral maxillary sinuses consistent with acute on chronic sinusitis. - CXR image interpreted by myself negative for pneumonia, per my interpretation. - Discussed results with patient and his at bedside. expresses multiple times that he does not feel safe taking the patient home, secondary to his confusion. Reports that while in the emergency department, the patient has been asking questions and seeming very confused again. Will discuss case with hospitalist service for admission. - Discussion was had with cyanide case hardener about patient's case and need for admission - Hospitalist consulted for admission - Patient admitted to [facility] hospitalist service for further evaluation and management. ASSESSMENT AND PLAN: Diagnosis: Altered mental status; coronavirus infection Plan: admit Past Med/Surg History Problem List (Updated 01/06/25 @ 12:25 by Tita Holley MD) Coronavirus infection (Acute) AMS (altered mental status) (Acute) Anxiety Hypothyroidism High cholesterol Medical History Anxiety High cholesterol Hypothyroidism Social History Smoking Status: Never smoker Tobacco Type: Cigarettes Preferred Language: Haitian Feels Safe at Home: Yes Allergies Allergies Allergy/AdvReac Type Severity Reaction Status Date / Time aspirin Allergy Unknown Unverified 01/17/21 12:18 bee venom protein (honey bee) Allergy UNKN Unverified 01/17/21 12:14 Home Meds Home Medications Medication Instructions Recorded Confirmed atorvastatin 40 mg tablet 40 mg PO DAILY 01/17/21 01/06/25 bupropion HCl 150 mg 24 hr tablet, 150 mg PO DAILY 01/17/21 01/06/25 extended release cholecalciferol (vitamin D3) 25 25 mcg PO DAILY 01/17/21 01/06/25 mcg (1,000 unit) capsule (Vitamin D3) levothyroxine 150 mcg tablet 150 mcg PO DAILY 01/17/21 01/06/25 (Euthyrox) qfjflvnc-kdvibccd-smakm acid 400 1 tab PO DAILY 01/17/21 01/06/25 mcg-vit K 20 mcg-lycop 300 mcg tablet (Men's Daily Formula) omeprazole 20 mg capsule,delayed 20 mg PO DAILY 01/17/21 01/06/25 release oxybutynin chloride 10 mg 10 mg PO DAILY 01/17/21 01/06/25 tablet,extended release 24 hr Previous Rx's Medication Instructions Recorded ondansetron 4 mg disintegrating 4 mg PO Q8H PRN nausea and 01/17/21 tablet vomiting #10 tabs tramadol 50 mg tablet 50 mg PO Q6H PRN pain #14 tabs 08/05/21 Results & Data (ED) Vital Signs Vital Signs - 24 hr 01/06/25 08:02 01/06/25 08:31 01/06/25 08:46 Temperature 36.8 C Temperature Source Temporal Artery Scan Pulse Rate 71 66 Pulse Rate [Apical] Pulse Strength [Apical] Respiratory Rate 17 Respiratory Effort / Characteristics Spontaneous Respiratory Depth Normal Respiratory Pattern Blood Pressure 139/67 Blood Pressure [Right Arm] Blood Pressure Mean 91 Blood Pressure Mean [Right Arm] Pulse Oximetry 94 98 Oxygen Delivery Method Room Air Room Air Sepsis Recent Fever Within 48 Hours No Sepsis New/Unexplained Change in Mental Status N/A Sepsis Action Taken by Nursing No Action Required 01/06/25 08:46 01/06/25 10:42 Temperature Temperature Source Pulse Rate Pulse Rate [Apical] 65 60 Pulse Strength [Apical] Normal Normal Respiratory Rate 18 18 Respiratory Effort / Characteristics Non-Labored Spontaneous Non-Labored Spontaneous Respiratory Depth Normal Normal Respiratory Pattern Regular Blood Pressure Blood Pressure [Right Arm] 116/73 132/65 Blood Pressure Mean Blood Pressure Mean [Right Arm] 87 87 Pulse Oximetry 94 92 Oxygen Delivery Method Room Air Sepsis Recent Fever Within 48 Hours Sepsis New/Unexplained Change in Mental Status Sepsis Action Taken by Nursing Laboratory Data 01/06/25 08:20 01/06/25 08:20 Lab Results 01/06/25 01/06/25 01/06/25 Range/Units 08:20 09:03 09:23 WBC 6.10 (4.8-10.8) K/ul RBC 4.62 L (4.70-6.10) M/uL Hgb 15.5 (14.0-18.0) g/dl Hct 44.5 (42.0-52.0) % MCV 96.3 (80.0-100.0) fL MCH 33.5 (25.0-34.0) pg MCHC 34.8 (32.0-36.0) g/dL RDW Std Deviation 44.5 (36.4-46.3) fL RDW Coeff of Rayo 12.5 (11.5-14.5) % Plt Count 184 (130-400) K/uL MPV 10.1 (9.4-12.4) fL Immature Gran % (Auto) 0.8 % Neut % (Auto) 63.0 % Lymph % (Auto) 21.1 % [place] % (Auto) 10.5 % Eos % (Auto) 3.9 % Baso % (Auto) 0.7 % Neut # (Auto) 3.84 (1.40-6.50) K/uL Lymph # (Auto) 1.29 (1.20-3.40) K/uL [place] # (Auto) 0.64 H (0.11-0.59) K/uL Eos # (Auto) 0.24 (0.00-0.50) K/uL Baso # (Auto) 0.04 (0.00-0.20) K/uL Immature Gran # (Auto) 0.05 (0.01-0.20) K/uL PT Cancelled 11.2 INR Cancelled 1.0 Sodium 141 (136-145) mmol/L Potassium 3.5 (3.5-5.1) mmol/L Chloride 107 (98-107) mmol/L Carbon Dioxide 27 (21-32) mmol/L Anion Gap 7 (3-11) BUN 15 (6-23) mg/dl Creatinine 0.96 (0.6-1.4) mg/dl Est Cr Clr Drug Dosing 79.4 ml/min eGFR 81.41 BUN/Creatinine Ratio 15.6 (10-20) Glucose 184 H (70-99(Fasting)) mg/dl Calcium 9.0 (8.6-10.3) mg/dl Magnesium 1.9 (1.7-2.4) mg/dl Total Bilirubin 0.5 (0.2-1.0) mg/dl AST 30 (13-39) U/L ALT 30 (7-52) U/L Alkaline Phosphatase 69 (34-104) U/L Troponin I High Sens 4.9 (0-20) pg/ml Total Protein 6.9 (6.0-8.3) gm/dl Albumin 3.9 (3.4-5.0) gm/dl Globulin 3.0 (2.5-4.0) gm/dl Albumin/Globulin Ratio 1.3 (0.9-2) TSH 1.563 (0.300-4.500) uIu/ml Urine Color Yellow Urine Appearance Clear (Clear) Urine pH 6.0 (4.5-7.5) Ur Specific [place] 1.021 (1.000-1.030) Urine Protein Negative (Negative) Urine Glucose (UA) 1+ H (Negative) Urine Ketones Trace H (Negative) Urine Blood Negative (Negative) Urine Nitrite Negative (Negative) Urine Bilirubin Negative (Negative) Urine Urobilinogen Negative (Negative) Ur Leukocyte Esterase Negative (Negative) Urine Opiates Screen Neg (Neg) Ur Methadone, Qual Neg (Neg) Urine Fentanyl Screen Neg (Neg) Urine Barbiturates Neg (Neg) Ur Phencyclidine (PCP) Neg (Neg) U Amphetamin/Meth Scrn Neg (Neg) MDMA (Ecstasy) Screen Pos H (Neg) U Benzodiazepines Scrn Neg (Neg) Ur Cocaine Metabolite Neg (Neg) U Marijuana (THC) Screen Neg (Neg) Adenovirus (PCR) (NotDetected) B. pertussis DNA (PCR) (NotDetected) B.parapertussis DNA PCR (NotDetected) C. pneumoniae DNA (PCR) (NotDetected) Coronavirus OC43 (PCR) (NotDetected) Coronavirus HKU1 (PCR) (NotDetected) Coronavirus 229E (PCR) (NotDetected) SARS-CoV-2 (PCR) (NotDetected) Coronavirus NL63 (PCR) (NotDetected) Human Metapneumovir PCR (NotDetected) Influenza Type A (PCR) (NotDetected) Influenza Type B (PCR) (NotDetected) M. pneumoniae (PCR) (NotDetected) Parainfluenza 1 (PCR) (NotDetected) Parainfluenza 2 (PCR) (NotDetected) Parainfluenza 3 (PCR) (NotDetected) Parainfluenza 4 (PCR) (NotDetected) RSV (PCR) (NotDetected) Entero/Rhino (PCR) (NotDetected) 01/06/25 Range/Units Unknown WBC (4.8-10.8) K/ul RBC (4.70-6.10) M/uL Hgb (14.0-18.0) g/dl Hct (42.0-52.0) % MCV (80.0-100.0) fL MCH (25.0-34.0) pg MCHC (32.0-36.0) g/dL RDW Std Deviation (36.4-46.3) fL RDW Coeff of Rayo (11.5-14.5) % Plt Count (130-400) K/uL MPV (9.4-12.4) fL Immature Gran % (Auto) % Neut % (Auto) % Lymph % (Auto) % [place] % (Auto) % Eos % (Auto) % Baso % (Auto) % Neut # (Auto) (1.40-6.50) K/uL Lymph # (Auto) (1.20-3.40) K/uL [place] # (Auto) (0.11-0.59) K/uL Eos # (Auto) (0.00-0.50) K/uL Baso # (Auto) (0.00-0.20) K/uL Immature Gran # (Auto) (0.01-0.20) K/uL PT INR Sodium (136-145) mmol/L Potassium (3.5-5.1) mmol/L Chloride (98-107) mmol/L Carbon Dioxide (21-32) mmol/L Anion Gap (3-11) BUN (6-23) mg/dl Creatinine (0.6-1.4) mg/dl Est Cr Clr Drug Dosing ml/min eGFR BUN/Creatinine Ratio (10-20) Glucose (70-99(Fasting)) mg/dl Calcium (8.6-10.3) mg/dl Magnesium (1.7-2.4) mg/dl Total Bilirubin (0.2-1.0) mg/dl AST (13-39) U/L ALT (7-52) U/L Alkaline Phosphatase (34-104) U/L Troponin I High Sens (0-20) pg/ml Total Protein (6.0-8.3) gm/dl Albumin (3.4-5.0) gm/dl Globulin (2.5-4.0) gm/dl Albumin/Globulin Ratio (0.9-2) TSH (0.300-4.500) uIu/ml Urine Color Urine Appearance (Clear) Urine pH (4.5-7.5) Ur Specific [place] (1.000-1.030) Urine Protein (Negative) Urine Glucose (UA) (Negative) Urine Ketones (Negative) Urine Blood (Negative) Urine Nitrite (Negative) Urine Bilirubin (Negative) Urine Urobilinogen (Negative) Ur Leukocyte Esterase (Negative) Urine Opiates Screen (Neg) Ur Methadone, Qual (Neg) Urine Fentanyl Screen (Neg) Urine Barbiturates (Neg) Ur Phencyclidine (PCP) (Neg) U Amphetamin/Meth Scrn (Neg) MDMA (Ecstasy) Screen (Neg) U Benzodiazepines Scrn (Neg) Ur Cocaine Metabolite (Neg) U Marijuana (THC) Screen (Neg) Adenovirus (PCR) Not Detected (NotDetected) B. pertussis DNA (PCR) Not Detected (NotDetected) B.parapertussis DNA PCR Not Detected (NotDetected) C. pneumoniae DNA (PCR) Not Detected (NotDetected) Coronavirus OC43 (PCR) Not Detected (NotDetected) Coronavirus HKU1 (PCR) Not Detected (NotDetected) Coronavirus 229E (PCR) Not Detected (NotDetected) SARS-CoV-2 (PCR) Not Detected (NotDetected) Coronavirus NL63 (PCR) DETECTED A (NotDetected) Human Metapneumovir PCR Not Detected (NotDetected) Influenza Type A (PCR) Not Detected (NotDetected) Influenza Type B (PCR) Not Detected (NotDetected) M. pneumoniae (PCR) Not Detected (NotDetected) Parainfluenza 1 (PCR) Not Detected (NotDetected) Parainfluenza 2 (PCR) Not Detected (NotDetected) Parainfluenza 3 (PCR) Not Detected (NotDetected) Parainfluenza 4 (PCR) Not Detected (NotDetected) RSV (PCR) Not Detected (NotDetected) Entero/Rhino (PCR) Not Detected (NotDetected) Imaging Data Radiologist's Impression: Chest X-Ray 01/06/25 08:45 XR chest 1V portable CLINICAL HISTORY: cough; confusion COMPARISON STUDY: Chest radiograph January 17, 2021. FINDINGS: Lung volumes are normal. Lungs are clear. There is no pneumothorax or pleural effusion. Mild cardiomegaly is unchanged. Mediastinal contours are stable. There is no evidence for pulmonary edema. IMPRESSION: No acute cardiopulmonary findings. No change in appearance of the chest. ACT 112: Negative or not required by law. Electronically signed by: Juan Alberto Camargo M.D. 01/06/2025 10:[address] 01/06/25 08:45 CT OF THE HEAD WITHOUT CONTRAST CLINICAL HISTORY: Confusion. COMPARISON STUDY: Head CT January 17, 2021. CT DOSE: 625.8 mGy.cm TECHNIQUE: Helical axial images of the head were obtained without IV contrast. Automated exposure control was utilized for the study. A dose lowering technique was utilized adhering to the principles of ALARA. FINDINGS: No acute intracranial hemorrhage, midline shift or mass effect is present. The ventricular system is unremarkable. The basal cisterns are patent. No extra-axial collections are present. There are no findings to suggest acute dural sinus thrombosis or acute territorial infarct. No significant calvarial abnormalities are present. White matter hypodensities suggest small vessel disease. Mastoid air cells are clear. There is moderate frontal sinus mucosal thickening. Extensive ethmoid sinus polypoid mucosal thickening was shown on prior CT. There is mild sphenoid sinus mucosal thickening. There is mucosal thickening of both maxillary sinuses with air-fluid levels. Maximal sinus opacification is new since prior exam. IMPRESSION: 1. No acute intracranial findings. 2. Extensive sinus mucosal thickening with air-fluid levels within the bilateral maxillary sinuses. The findings may represent acute on chronic sinusitis. ACT 112: Negative or not required by law. Electronically signed by: Juan Alberto Camargo M.D. 01/06/2025 9:39 AM Discharge Plan Visit Data Chief Complaint: Confusion Stated Complaint: DISORIENTED,CONFUSION ED Provider: Tita Holley Discharge Problem: AMS (altered mental status), Coronavirus infection Forms Stand Alone Forms: [facility] Prescriptions Prescriptions: No Action atorvastatin 40 mg tablet 40 mg PO DAILY oxybutynin chloride 10 mg tablet extended release 24hr 10 mg PO DAILY levothyroxine [Euthyrox] 150 mcg tablet 150 mcg PO DAILY omeprazole 20 mg capsule,delayed release(DR/EC) 20 mg PO DAILY cholecalciferol (vitamin D3) [Vitamin D3] 25 mcg (1,000 unit) Capsule 25 mcg PO DAILY bupropion HCl 150 mg tablet extended release 24 hr 150 mg PO DAILY Men's Daily Formula 400-20-300 mcg Tablet 1 tab PO DAILY ondansetron 4 mg tablet,disintegrating 4 mg PO Q8H PRN (Reason: nausea and vomiting) Qty: 10 0RF tramadol 50 mg tablet 50 mg PO Q6H PRN (Reason: pain) Qty: 14 0RF Referrals Referrals: Jose F Chapman MD [Primary Care Provider] -
--- NOTE | 2025-01-06 10:04 | XRay Report ---
XR chest 1V portable CLINICAL HISTORY: cough; confusion COMPARISON STUDY: Chest radiograph January 17, 2021. FINDINGS: Lung volumes are normal. Lungs are clear. There is no pneumothorax or pleural effusion. Mil d cardiomegaly is unchanged. Mediastinal contours are stable. There is no evidence for pulmonary gianluca a. IMPRESSION: No acute cardiopulmonary findings. No change in appearance of the chest. ACT 112: Negative or not required by law. Electronically signed by: Juan Alberto Camargo M.D. 01/06/2025 10:03 AM
--- NOTE | 2025-01-06 10:34 | Electrocardiogram Report ---
Test Reason : Blood Pressure : */* mmHG Vent. Rate : 61 BPM Atrial Rate : 61 BPM P-R Int : 190 ms QRS Dur : 98 ms QT Int : 400 ms P-R-T Axes : 49 -25 43 degrees QTcB Int : 402 ms Normal sinus rhythm possible Inferior infarct , age undetermined Abnormal ECG When compared with ECG of 17-Jan-2021 11:52, Incomplete right bundle branch block is no longer Present Confirmed by Samir Valerio ([id number]) on 01/06/2025 10:33:37 AM Referred By: REFERRED SELF Confirmed By: Samir Valerio
[2025-01-06 11:53] LABS: Amphetamines+Metham, Urine Neg (Neg); Barbiturates, Urine Neg (Neg); Benzodiazepine, Urine Neg (Neg); Cocaine, Urine Neg (Neg); Fentanyl, Urine Neg (Neg); MDMA (Ecstacy), Urine Pos (Neg); Marijuana, Urine Neg (Neg); Methadone, Urine Neg (Neg); Opiate, Urine Neg (Neg); Phencyclidine, Urine Neg (Neg)
--- NOTE | 2025-01-06 12:26 | History & Physical Report ---
<Statement entered by Edmundo Patton, DO - 01/06/25 14:58> I have seen and examined the patient and have discussed the case with the advance practice provider. I have reviewed the advanced practitioner's documentation, and I agree with, and take responsibility for that plan of care. Patient seen and examined while still in the ED. His significant other had already had at home. He was appropriate and could answer questions. He denies any significant pain or discomfort. Suspect patient with acute delirium on underlying early dementia/cognitive impairment due to acute coronavirus infection and sinusitis. Check TSH, B12, folate, RPR as part of the dementia workup Further plan of care as outlined below, discussed extensively with TAYA I spent a total of 22 minutes coordinating, documenting, and providing care for this patient excluding time spent by another provider/QHP. Date of Service January 06, 2025 Assessment & Plan (1) AMS (altered mental status): Plan: Corwin Viera is a 79y/o M with PMHx significant for HTN, HLD, hypothyroidism, prediabetes, GERD, BPH with LUTS, ocular migraines and depression who presented to the ED with his for evaluation of AMS. Patient with intermittent episodes of confusion for the past several months. His , however, notes that these episodes of confusion have become more frequent and longer-lasting over the past few weeks. For example, patient thought it was Thanksgiving last evening and that his mother was still alive. His mother sadly about 20 years ago, but of importance, his mother had a significant history of dementia. Patient offers no complaints at this time other than some sinus congestion. He is alert and oriented x 3 during our conversation with only 1 short period of forgetfulness. Head CT unremarkable except for below. Suspected underlying dementia attributing to presentation, especially given H/O dementia in a 1st-degree relative. Check brain MRI. TSH WNL. UA negative. Likely increased confusion component of superimposed delirium on underlying dementia ISO coronavirus infection as per below. Check folate/B12 and RPR. (2) Acute sinusitis: (3) Coronavirus infection: Plan: Labs reviewed and grossly unremarkable. VSS. Coronavirus NL63 positive. CXR negative. Head CT with findings concerning for acute on chronic sinusitis. Starting Augmentin course. Probiotic added on. (4) HTN (hypertension): Plan: Normotensive on admission. Not currently on any antihypertensives. Continue to m onitor BP. (5) Hyperlipidemia: Plan: Chronic, stable. Continue atorvastatin. (6) BPH with obstruction/lower urinary tract symptoms: Plan: Chronic, stable. Continue oxybutynin. (7) GERD (gastroesophageal reflux disease): Plan: Chronic, stable. Continue omeprazole. (8) Prediabetes: Plan: Hgb A1c 6% about 6 months ago. Repeat Hgb A1c in AM. Mildly hyperglycemic on admission with non-fasting BSG of 184. Check BSG BID with goal range of 110-180. (9) Depression: Plan: Chronic, stable. Continue Wellbutrin. Suspect false positive urine MDMA screen 2/2 Wellbutrin use. No history of recreational drug use. DVT Prophylaxis: SQ Heparin Code Status: FULL CODE PCP: Jose F Chapman MD Disposition: Observation in Med/Surg for further inpatient evaluation and management. Patient seen in collaboration with Dr. Patton. Please see addendum. I spent a total of 45 minutes coordinating, documenting, and providing care for this patient excluding time spent in the performance of separately billed services or time spent by another provider/QHP. This included personally reviewing all current laboratories and imaging studies, medical reconciliation, outpatient chart review and discussion with specialists. This chart was completed in part utilizing Speech Voice Recognition Software. Grammatical errors, random word insertions, pronoun errors, and incomplete sentences are an occasional consequence of this system due to software l imitations, ambient noise, and hardware issues. Any formal questions or concerns about the content, text, or information contained within the body of this dictation should be directly addressed to the provider for clarification. History of Present Illness Chief Complaint: AMS, Sinus Congestion Primary Care Provider: Jose F Chapman MD Corwin Viera is a 79y/o M with PMHx significant for HTN, HLD, hypothyroidism, prediabetes, GERD, BPH with LUTS, ocular migraines and depression who presented to the ED with his for evaluation of AMS. History obtained from the patient, patient's at bedside, discussion with ED provider and associated chart review. Patient with intermittent episodes of confusion for the past several months. His , however, notes that these episodes of confusion have become more frequent and longer-lasting over the past few weeks. For example, patient thought it was Thanksgiving last evening and that his mother was still alive. His mother sadly about 20 years ago, but of importance, his mother had a significant history of dementia. Patient offers no complaints at this time other than some notable sinus congestion. No recorded fevers or cough. He is alert and oriented x 3 during our conversation with only 1 short period of forgetfulness. He is still driving however there have been times where the patient has forgotten to get off an exit or where exactly he was headed in the first place. No reported falls or head trauma. Denies any weakness, numbness or tingling in his extremities. No changes in appetite. Denies any chest pain or SOB. No reported facial drooping or speech changes/difficulties. No documented personal history of dementia. Allergies Allergy/AdvReac Type Severity Reaction Status Date / Time aspirin Allergy Unknown Unverified 01/17/21 12:18 bee venom protein (honey bee) Allergy UNKN Unverified 01/17/21 12:14 Home Medications Medication Instructions Recorded Confirmed Type atorvastatin 40 mg tablet 40 mg PO DAILY 01/17/21 01/06/25 History bupropion HCl 150 mg 24 hr tablet, 150 mg PO DAILY 01/17/21 01/06/25 History extended release cholecalciferol (vitamin D3) 25 25 mcg PO DAILY 01/17/21 01/06/25 History mcg (1,000 unit) capsule (Vitamin D3) levothyroxine 150 mcg tablet 150 mcg PO DAILY 01/17/21 01/06/25 History (Euthyrox) pmlbtdfc-ytpuggzq-izcvk acid 400 1 tab PO DAILY 01/17/21 01/06/25 History mcg-vit K 20 mcg-lycop 300 mcg tablet (Men's Daily Formula) omeprazole 20 mg capsule,delayed 20 mg PO DAILY 01/17/21 01/06/25 History release ondansetron 4 mg disintegrating 4 mg PO Q8H PRN nausea and 01/17/21 01/06/25 Rx tablet vomiting #10 tabs oxybutynin chloride 10 mg 10 mg PO DAILY 01/17/21 01/06/25 History tablet,extended release 24 hr tramadol 50 mg tablet 50 mg PO Q6H PRN pain #14 tabs 08/05/21 01/06/25 Rx Past Med/Surg History Problem List (Updated 01/06/25 @ 12:40 by Candy Eli PA-C) Prediabetes Depression GERD (gastroesophageal reflux disease) BPH with obstruction/lower urinary tract symptoms Hyperlipidemia HTN (hypertension) Acute sinusitis Coronavirus infection (Acute) AMS (altered mental status) (Acute) Anxiety Hypothyroidism High cholesterol Social History Smoking Status: Never smoker Tobacco Type: Cigarettes Preferred Language: Croatian Feels Safe at Home: Yes Review of Systems Review of Systems: At least ten systems reviewed and negative, except as noted in the HPI. Physical Exam Physical Exam: General: WD/WN, vitals as above, NAD, sitting up in bed, very pleasant. A+Ox3. Short episodes of forgetfulness. HEENT: Normocephalic, atraumatic. Conjunctivae normal, anicteric sclerae. External ear and nose normal, oropharynx normal. Respiratory: Normal respiratory effort, lungs clear to auscultation, no wheeze/rales/rhonchi. No accessory muscle use. Cardiovascular: Regular rate, rhythm, normal peripheral pulses, no BLE edema. Vessels: No JVD. Abdomen/GI: Normal bowel sounds, soft, nondistended, nontender to palpation in all quadrants. Extremities/Musculoskeletal: No cyanosis or clubbing, extremities motor strength intact, moves all extremities. Neurologic: No overt focal deficits, CN's II-XI not formally tested but appear grossly intact bilaterally. Results & Data Results & Data Vital Signs (Past 12 Hours) Vital Signs Temp Pulse Pulse Resp BP BP Pulse Ox 01/06/25 10:42 60 18 132/65 92 01/06/25 08:46 65 18 116/73 94 01/06/25 08:46 98 01/06/25 08:31 66 01/06/25 08:02 36.8 C 71 17 139/67 94 O2 Del Method 01/06/25 10:42 01/06/25 08:46 Room Air 01/06/25 08:46 Room Air 01/06/25 08:31 01/06/25 08:02 Room Air Laboratory Results Short CBC 01/06/25 Range/Units 08:20 WBC 6.10 (4.8-10.8) K/ul Hgb 15.5 (14.0-18.0) g/dl Hct 44.5 (42.0-52.0) % Plt Count 184 (130-400) K/uL BMP 01/06/25 08:20 Sodium 141 Potassium 3.5 Chloride 107 Carbon Dioxide 27 BUN 15 Creatinine 0.96 Glucose 184 H Calcium 9.0 Liver Function 01/06/25 Range/Units 08:20 Total Bilirubin 0.5 (0.2-1.0) mg/dl AST 30 (13-39) U/L ALT 30 (7-52) U/L Alkaline Phosphatase 69 (34-104) U/L Albumin 3.9 (3.4-5.0) gm/dl Urine 01/06/25 Range/Units 09:23 Urine Color Yellow Urine Appearance Clear (Clear) Urine pH 6.0 (4.5-7.5) Ur Specific [place] 1.021 (1.000-1.030) Urine Protein Negative (Negative) Urine Glucose (UA) 1+ H (Negative) Diagnostic Findings Chest X-Ray 01/06/25 08:45 XR chest 1V portable CLINICAL HISTORY: cough; confusion COMPARISON STUDY: Chest radiograph January 17, 2021. FINDINGS: Lung volumes are normal. Lungs are clear. There is no pneumothorax or pleural effusion. Mild cardiomegaly is unchanged. Mediastinal contours are stable. There is no evidence for pulmonary edema. IMPRESSION: No acute cardiopulmonary findings. No change in appearance of the chest. ACT 112: Negative or not required by law. Electronically signed by: Juan Alberto Camargo M.D. 01/06/2025 10:[address] 01/06/25 08:45 CT OF THE HEAD WITHOUT CONTRAST CLINICAL HISTORY: Confusion. COMPARISON STUDY: Head CT January 17, 2021. CT DOSE: 625.8 mGy.cm TECHNIQUE: Helical axial images of the head were obtained without IV contrast. Automated exposure control was utilized for the study. A dose lowering technique was utilized adhering to the principles of ALARA. FINDINGS: No acute intracranial hemorrhage, midline shift or mass effect is present. The ventricular system is unremarkable. The basal cisterns are patent. No extra-axial collections are present. There are no findings to suggest acute dural sinus thrombosis or acute territorial infarct. No significant calvarial abnormalities are present. White matter hypodensities suggest small vessel disease. Mastoid air cells are clear. There is moderate frontal sinus mucosal thickening. Extensive ethmoid sinus polypoid mucosal thickening was shown on prior CT. There is mild sphenoid sinus mucosal thickening. There is mucosal thickening of both maxillary sinuses with air-fluid levels. Maximal sinus opacification is new since prior exam. IMPRESSION: 1. No acute intracranial findings. 2. Extensive sinus mucosal thickening with air-fluid levels within the bilateral maxillary sinuses. The findings may represent acute on chronic sinusitis. ACT 112: Negative or not required by law. Electronically signed by: Juan Alberto Camargo M.D. 01/06/2025 9:39 AM Code Status & VTE Plan Code Status FULL CODE (1) AMS (altered mental status) Altered mental status type: unspecified Qualified Code(s): R41.82 - Altered mental status, unspecified (2) Acute sinusitis Recurrence: not specified as recurrent Sinusitis location: unspecified location Qualified Code(s): J01.90 - Acute sinusitis, unspecified (4) HTN (hypertension) Hypertension type: unspecified Qualified Code(s): I10 - Essential (primary) hypertension (5) Hyperlipidemia Hyperlipidemia type: unspecified Qualified Code(s): E78.5 - Hyperlipidemia, unspecified (7) GERD (gastroesophageal reflux disease) Esophagitis presence: esophagitis presence not specified Qualified Code(s): K21.9 - Gastro-esophageal reflux disease without esophagitis (9) Depression Depression Type: unspecified Qualified Code(s): F32.A - Depression, unspecified
[2025-01-06] MEDS ORDERED: ACETAMINOPHEN 325 MG TAB PO PRN (14:10)
[2025-01-06] MEDS ORDERED: POLYETHYLENE (MIRALAX) 17 GM PACK PO PRN (14:10)
[2025-01-06] MEDS ORDERED: MAGNESIUM HYDROXIDE SUSP 30 ML UDC PO PRN (14:10)
[2025-01-06] MEDS ORDERED: ONDANSETRON INJ 2 MG/ML 2 ML VIAL IV PRN (14:10)
[2025-01-06 15:04] LABS: Folate (Folic Acid),Ser orPlas > 22.30 ng/ml (>5.38)
[2025-01-06 15:05] LABS: Vitamin B12 299 pg/ml (180-914)
[2025-01-06] MEDS: ADVANCED PROBIOTIC 625 MG CAPSULE PO SCH (15:13)
[2025-01-06] MEDS: AMOXICILLIN/CLAVULANATE 875 MG TAB PO SCH (17:25)
[2025-01-06] MEDS: HEPARIN SOD 5,000 UNIT/0.5 ML VIAL SQ SCH (20:19)
[2025-01-07 08:14] LABS: Hematocrit (blood only) 45.4 % (42.0-52.0); Hemoglobin 15.6 g/dl (14.0-18.0); Mean Corpuscular Hemoglobin 32.6 pg (25.0-34.0); Mean Corpuscular Hgb Conc 34.4 g/dL (32.0-36.0); Mean Platelet Volume 9.6 fL (9.4-12.4); Platelet Count 194 K/uL (130-400); RDW Coefficient of Variation 12.6 % (11.5-14.5); Red Blood Count 4.78 M/uL (4.70-6.10); White Blood Count 6.17 K/ul (4.8-10.8)
[2025-01-07 08:31] LABS: BUN Creatinine Ratio 14.4 (10-20); Creatinine Clr Calc Pharmacy 78.5 ml/min; Magnesium 2.1 mg/dl (1.7-2.4); Phosphorus 3.5 mg/dl (2.5-4.9); Potassium 3.5 mmol/L (3.5-5.1)
[2025-01-07 11:33] LABS: Estimated Average Glucose 117 mg/dl; Hemoglobin A1C 5.7 % (4.5-5.6)
--- NOTE | 2025-01-07 13:37 | Hospitalist Progress Note ---
Date of Service January 07, 2025 Assessment & Plan (1) AMS (altered mental status): (2) Acute sinusitis: (3) Coronavirus infection: Plan Corwin Viera is a 79y/o M with PMHx significant for HTN, HLD, hypothyroidism, prediabetes, GERD, BPH with LUTS, ocular migraines and de pression who presented to the ED with his for evaluation of AMS. Patient with intermittent episodes of confusion for the past several months. Acute metabolic encephalopathy Coronavirus Infection Acute on Chronic Sinusitis Pt presenting with AMS Concern for underlying mild cognitive impairment Head CT unremarkable except for noted acute on chronic sinusitis changes respiratory viral panel noting non covid coronavirus infection Chest XRAY unremarkable No increased oxygen requirement UA unremarkable for infection Brain MRI pending TSH normal b12 and folate normal RPR ordered on admission pending Tox screen with reflex for MDMA pending Supportive care for coronavirus infection Continue Augmentin for sinusitis Delirium precautions. Frequent reorientation, avoid sedating medications as able Altered mental status likely in the setting of acute illness Will need neurocognitive testing after discharge PT/OT recommending return home Continue to monitor Continue other home meds as ordered Diet:DMII DVT prophylaxis: heparin SQ Dispo: Home once medically stable Admission and Anticipated Discharge Date Admission Date: January 06, 2025 Subjective pt was seen with his at bedside. Per , he is back to baseline Pt AAOx3 Denied acute concerns Awaiting MRI Review of Systems Review of Systems: All systems reviewed & are unremarkable except as noted in Subjective Physical Exam Physical Exam: General: Alert, oriented. No acute distress Neuro: No gross deficits HEENT: NC/AT CV: RRR Resp: Breath sounds clear bilaterally, no increased effort of breathing Abdomen: Soft, nontender Extremities: No edema in lower extremities bilaterally. Results & Data Results & Data Vital Signs (Past 12 Hours) Vital Signs Temp Pulse Resp BP Pulse Ox O2 Del Method 01/07/25 07:01 36.5 C 65 16 157/70 H 94 Room Air (1) AMS (altered mental status) Altered mental status type: unspecified Qualified Code(s): R41.82 - Altered mental status, unspecified (2) Acute sinusitis Sinusitis location: unspecified location Recurrence: not specified as recurrent Qualified Code(s): J01.90 - Acute sinusitis, unspecified
[2025-01-07 19:47] VITALS: O2SAT 94
--- NOTE | 2025-01-07 21:33 | Magnetic Resonance Report ---
Exam(s): MRI HEAD Without Contrast EXAM: MR Head Without Intravenous Contrast CLINICAL HISTORY: Reason for exam: Increased confusion. TECHNIQUE: Magnetic resonance images of the head/brain without intravenous contrast in multiple planes. COMPARISON: No relevant prior studies available. FINDINGS: Brain: No restricted diffusion. No intracranial hemorrhage, mass- effect, or cerebral edema. Global parenchymal atrophy. Periventricular and subcortical T2/flair hyperintensities favored to represent chronic microvascular ischemic changes. Ventricles: Unremarkable. No ventriculomegaly. Bones/joints: Unremarkable. No acute fracture. Sinuses: [place] paranasal sinus mucosal thickening. Fluid in the maxillary sinuses. Mastoid air cells: Unremarkable as visualized. No mastoid effusion. Orbits: Unremarkable as visualized. IMPRESSION: 1. No acute intracranial abnormality. 2. Atrophy and chronic microvascular ischemic changes. 3. Extensive paranasal sinus disease. Correlate for acute sinusitis. Electronically signed by: Arnav Maria MD 01/07/25 21:31 PM
[2025-01-08 07:10] VITALS: BP 121/75; PULSE 73; RESP 18; TEMP 98.1
[2025-01-08 08:38] LABS: Basophils # (auto) 0.05 K/uL (0.00-0.20); Basophils % (auto) 0.8 %; Eosinophils # (auto) 0.41 K/uL (0.00-0.50); Eosinophils % (auto) 6.3 %; Hematocrit (blood only) 47.8 % (42.0-52.0); Hemoglobin 16.7 g/dl (14.0-18.0); Immature Granulocytes # (auto) 0.06 K/uL (0.01-0.20); Immature Granulocytes % (auto) 0.9 %; Lymphocytes # (auto) 2.62 K/uL (1.20-3.40); Lymphocytes % (auto) 40.1 %; Mean Corpuscular Hemoglobin 33.1 pg (25.0-34.0); Mean Corpuscular Hgb Conc 34.9 g/dL (32.0-36.0); Mean Corpuscular Volume 94.7 fL (80.0-100.0); Mean Platelet Volume 9.8 fL (9.4-12.4); Monocytes # (auto) 0.74 K/uL (0.11-0.59); Monocytes % (auto) 11.3 %; Neutrophils # (auto) 2.66 K/uL (1.40-6.50); Neutrophils % (auto) 40.6 %; Platelet Count 224 K/uL (130-400); RDW Coefficient of Variation 12.5 % (11.5-14.5); RDW Standard Deviation 43.4 fL (36.4-46.3); Red Blood Count 5.05 M/uL (4.70-6.10); White Blood Count 6.54 K/ul (4.8-10.8)
[2025-01-08 09:09] LABS: BUN Creatinine Ratio 20.4 (10-20); Calcium 9.2 mg/dl (8.6-10.3); Creatinine Clr Calc Pharmacy 77.7 ml/min; Magnesium 2.1 mg/dl (1.7-2.4); Phosphorus 3.7 mg/dl (2.5-4.9); Potassium 3.5 mmol/L (3.5-5.1)
--- NOTE | 2025-01-08 11:16 | Discharge Summary ---
Discharge Summary Date of Service January 08, 2025 Principal Dx & Hospital Course #1 = Principal Diagnosis (1) AMS (altered mental status): (2) Acute sinusitis: (3) Coronavirus infection: (4) Acute metabolic encephalopathy: Plan Corwin Viera is a 79y/o M with PMHx significant for HTN, HLD, hypothyroidism, prediabetes, GERD, BPH with LUTS, ocular migraines and depression who presented to the ED with his for evaluation of AMS. Patient with intermittent episodes of confusion for the past several months. Acute metabolic encephalopathy Coronavirus Infection Acute on Chronic Sinusitis Pt presenting with AMS Concern for underlying mild cognitive impairment Head CT unremarkable except for noted acute on chronic sinusitis changes respiratory viral panel noting non covid coronavirus infection Chest XRAY unremarkable No increased oxygen requirement UA unremarkable for infection Brain MRI noting "Extensive paranasal sinus disease" TSH normal b12 and folate normal RPR ordered on admission negative Tox screen with reflex for MDMA pending on discharge Supportive care for coronavirus infection Continue Augmentin for sinusitis. Discharged with 8 more days with a probiotic Delirium precautions. Frequent reorientation, avoid sedating medications as able Altered mental status likely in the setting of acute illness Will need neurocognitive testing after discharge given concern for underlying mild neurocognitive dysfunction. Will defer to pcp for driving restrictions. PT/OT recommending return home Consider ENT followup for extensive acute on chronic sinusitis changes. On the day of discharge, patient was alert and oriented x 3. Anxious for discharge home. Discharged with an additional 8 days of p.o. Augmentin to be taken with a probiotic. Consider ENT and neuropsych follow-up after discharge. Close PCP follow-up. Patient left in stable condition agreeable to the plan. Notes For Next Care Provider consider ENT follow-up for noted acute on chronic sinusitis changes Given patient's acute metabolic encephalopathy with acute viral illness in the setting of possible underlying mild cognitive dysfunction, follow-up with neuropsychology for neurocognitive testing recommended. Medication Changes From Visit Augmentin 875 mg twice daily for an additional 8 days Probiotic Admission HPI Per Admitting Provider Corwin Viera is a 79y/o M with PMHx significant for HTN, HLD, hypothyroidism, prediabetes, GERD, BPH with LUTS, ocular migraines and depression who presented to the ED with his for evaluation of AMS. History obtained from the patient, patient's at bedside, discussion with ED provider and associated chart review. Patient with intermittent episodes of confusion for the past several months. His , however, notes that these episodes of confusion have become more frequent and longer-lasting over the past few weeks. For example, patient thought it was Thanksgiving last evening and that his mother was still alive. His mother sadly about 20 years ago, but of importance, his mother had a significant history of dementia. Patient offers no complaints at this time other than some notable sinus congestion. No recorded fevers or cough. He is alert and oriented x 3 during our conversation with only 1 short period of forgetfulness. He is still driving however there have been times where the patient has forgotten to get off an exit or where exactly he was headed in the first place. No reported falls or head trauma. Denies any weakness, numbness or tingling in his extremities. No changes in appetite. Denies any chest pain or SOB. No reported facial drooping or speech changes/difficulties. No documented personal history of dementia. Admission Exam Per Admitting Provider General: WD/WN, vitals as above, NAD, sitting up in bed, very pleasant. A+Ox3. Short episodes of forgetfulness. HEENT: Normocephalic, atraumatic. Conjunctivae normal, anicteric sclerae. External ear and nose normal, oropharynx normal. Respiratory: Normal respiratory effort, lungs clear to auscultation, no wheeze/rales/rhonchi. No accessory muscle use. Cardiovascular: Regular rate, rhythm, normal peripheral pulses, no BLE edema. Vessels: No JVD. Abdomen/GI: Normal bowel sounds, soft, nondistended, nontender to palpation in all quadrants. Extremities/Musculoskeletal: No cyanosis or clubbing, extremities motor strength intact, moves all extremities. Neurologic: No overt focal deficits, CN's II-XI not formally tested but appear grossly intact bilaterally. Discharge Exam General: Alert, oriented. No acute distress Neuro: No gross deficits HEENT: NC/AT CV: RRR Resp: Breath sounds clear bilaterally, no increased effort of breathing Abdomen: Soft, nontender Extremities: No edema in lower extremities bilaterally. Updated Medication List Medication Instructions Recorded Confirmed Type atorvastatin 40 mg tablet 40 mg PO DAILY 01/17/21 01/06/25 History bupropion HCl 150 mg 24 hr tablet, 150 mg PO DAILY 01/17/21 01/06/25 History extended release cholecalciferol (vitamin D3) 25 25 mcg PO DAILY 01/17/21 01/06/25 History mcg (1,000 unit) capsule (Vitamin D3) levothyroxine 150 mcg tablet 150 mcg PO DAILY 01/17/21 01/06/25 History (Euthyrox) mketimjw-vnlzezzh-soloh acid 400 1 tab PO DAILY 01/17/21 01/06/25 History mcg-vit K 20 mcg-lycop 300 mcg tablet (Men's Daily Formula) omeprazole 20 mg capsule,delayed 20 mg PO DAILY 01/17/21 01/06/25 History release ondansetron 4 mg disintegrating 4 mg PO Q8H PRN nausea and 01/17/21 01/06/25 Rx tablet vomiting #10 tabs oxybutynin chloride 10 mg 10 mg PO DAILY 01/17/21 01/06/25 History tablet,extended release 24 hr tramadol 50 mg tablet 50 mg PO Q6H PRN pain #14 tabs 08/05/21 01/06/25 Rx Saccharomyces boulardii 250 mg 250 mg PO BID #30 caps 01/08/25 Rx capsule (Florastor) amoxicillin 875 mg-potassium 1 tab PO BIDM #16 tabs 01/08/25 Rx clavulanate 125 mg tablet Hospital Stay Data Consultations 01/06/25 12:24 ED Decision to Admit Stat Diagnostic Imagining Performed 01/06/25 08:45 CT head/brain wo con Stat 01/07/25 10:17 MR brain wo con Routine Chest X-Ray 01/06/25 08:45 XR chest 1V portable CLINICAL HISTORY: cough; confusion COMPARISON STUDY: Chest radiograph January 17, 2021. FINDINGS: Lung volumes are normal. Lungs are clear. There is no pneumothorax or pleural effusion. Mild cardiomegaly is unchanged. Mediastinal contours are stab le. There is no evidence for pulmonary edema. IMPRESSION: No acute cardiopulmonary findings. No change in appearance of the chest. ACT 112: Negative or not required by law. Electronically signed by: Juan Alberto Camargo M.D. 01/06/2025 10:[address] 01/06/25 08:45 CT OF THE HEAD WITHOUT CONTRAST CLINICAL HISTORY: Confusion. COMPARISON STUDY: Head CT January 17, 2021. CT DOSE: 625.8 mGy.cm TECHNIQUE: Helical axial images of the head were obtained without IV contrast. Automated exposure control was utilized for the study. A dose lowering techniqu e was utilized adhering to the principles of ALARA. FINDINGS: No acute intracranial hemorrhage, midline shift or mass effect is present. The ventricular system is unremarkable. The basal cisterns are patent. No extra-axial collections are present. There are no findings to suggest acute dural sinus thrombosis or acute territorial infarct. No significant calvarial abnormalities are present. White matter hypodensities suggest small vessel disease. Mastoid air cells are clear. There is moderate frontal sinus mucosal thickening. Extensive ethmoid sinus polypoid mucosal thickening was shown on p rior CT. There is mild sphenoid sinus mucosal thickening. There is mucosal thickening of both maxillary sinuses with air-fluid levels. Maximal sinus opacification is new since prior exam. IMPRESSION: 1. No acute intracranial findings. 2. Extensive sinus mucosal thickening with air-fluid levels within the bilateral maxillary sinuses. The findings may represent acute on chronic sinusitis. ACT 112: Negative or not required by law. Electronically signed by: Juan Alberto Camargo M.D. 01/06/2025 9:39 AM Brain MRI 01/07/25 10:17 Exam(s): MRI HEAD Without Contrast EXAM: MR Head Without Intravenous Contrast CLINICAL HISTORY: Reason for exam: Increased confusion. TECHNIQUE: Magnetic resonance images of the head/brain without intravenous contrast in multiple planes. COMPARISON: No relevant prior studies available. FINDINGS: Brain: No restricted diffusion. No intracranial hemorrhage, mass- effect, or cerebral edema. Global parenchymal atrophy. Periventricular and subcortical T2/flair hyperintensities favored to represent chronic microvascular ischemic changes. Ventricles: Unremarkable. No ventriculomegaly. Bones/joints: Unremarkable. No acute fracture. Sinuses: [place] paranasal sinus mucosal thickening. Fluid in the maxillary sinuses. Mastoid air cells: Unremarkable as visualized. No mastoid effusion. Orbits: Unremarkable as visualized. IMPRESSION: 1. No acute intracranial abnormality. 2. Atrophy and chronic microvascular ischemic changes. 3. Extensive paranasal sinus disease. Correlate for acute sinusitis. Electronically signed by: Arnav Maria MD 01/07/25 21:31 PM Pending Results Patient Have Any Pending Studies at Discharge: No Discharge Instructions Given to Patient (Per Discharging Provider) Corwin, You were admitted and treated for acute mental status changes in the setting of an acute viral illness. You had head imaging in the form of a CT of your head and an MRI of your brain that showed acute on chronic sinusitis changes but were otherwise unremarkable. We started you on the antibiotic Augmentin and we are discharging you with an additional 8 days of this treatment. Please continue with the probiotic also prescribed to help prevent side effects such as diarrhea related to the antibiotic treatment. Continue with symptomatic treatment for your viral illness. You can anticipate a 7 to 10-day course of symptoms in total. You will likely also need close follow-up with an construction mgr specialist as well as a neuropsychologist for further neurocognitive testing. Your primary care provider can refer you to the specialists if needed. Please keep close follow up with your primary care provider after discharge. A follow-up appointment has been set up for you on January 15, 2025. Please do not hesitate to come back to the emergency room if your symptoms worsen or return. It was a pleasure taking care of you while you were here. Total Time Total Time Spent Total Time Spent (In Minutes): 60
[2025-01-10 13:52] LABS: MDA negative; MDEA negative; MDMA (Ecstasy) Urine, Confirm negative
== END 2025-01-08 12:10 | disposition home or self-care (01) ==
LOC: EDINP 07:56 → ED 07:56 → SUATTDRO 12:31 → 3W 14:11